=== PATIENT | male | born 1975 | race Caucasian/White ===

== ENCOUNTER 2018-04-28 11:06 | Emergency (ER) | payer BC ==
[~2018-04-28] VITALS: Ht 179.1 cm; Wt 136.1 kg
[2018-04-28 12:00] LABS: BASOPHILS # (AUTO) 0.1 (0.0-0.1); BASOPHILS % 1.2 % (0.0-1.0); EOSINOPHILS # (AUTO) 0.3 (0.0-0.4); EOSINOPHILS % 3.1 % (0.0-6.0); HEMATOCRIT 42.7 % (38.2-49.6); HEMOGLOBIN 14.8 g/dL (14.0-18.0); LYMPHOCYTES # (AUTO) 3.8 (1.0-3.2); LYMPHOCYTES % 39.1 % (18.0-39.1); MEAN CORPUSCULAR HEMOGLOBIN 30.3 pg (28-32); MEAN CORPUSCULAR HGB CONC 34.7 g/dL (31-35); MEAN CORPUSCULAR VOLUME 87.3 fL (81-99); MONOCYTES # (AUTO) 0.7 (0.2-0.8); MONOCYTES % 7.4 % (4.4-11.3); NEUTROPHILS # (AUTO) 4.8 (2.1-6.9); NEUTROPHILS % 48.9 % (38.7-80.0); PLATELET COUNT 221 x10e3/uL (140-360); RED BLOOD COUNT 4.89 x10e6/uL (4.3-5.7); RED CELL DISTRIBUTION WIDTH 12.2 % (11.7-14.4)
[2018-04-28 12:18] LABS: INR 0.92; PROTHROMBIN TIME 13.2 seconds (11.9-14.5)
[2018-04-28 12:29] LABS: ALANINE AMINOTRANSFERASE 55 IU/L (0-55); ALBUMIN 4.1 g/dL (3.5-5.0); ALBUMIN/GLOBULIN RATIO 1.2 (0.8-2.0); ALKALINE PHOSPHATASE 69 IU/L (40-150); ANION GAP 14.9 mmol/L (8-16); BLOOD UREA NITROGEN 14 mg/dL (7-26); BUN/CREATININE RATIO 13 (6-25); CALCIUM 9.6 mg/dL (8.4-10.2); CARBON DIOXIDE 22 mmol/L (22-29); CHLORIDE 108 mmol/L (98-107); CREATINE KINASE 111 IU/L (30-200); CREATININE, SERUM 1.06 mg/dL (0.72-1.25); EST GLOMERULAR FILTRATION RATE > 60 ML/MIN (60-); GLUCOSE 101 mg/dL (74-118); POTASSIUM 3.9 mmol/L (3.5-5.1); SODIUM 141 mmol/L (136-145)
--- NOTE | 2018-04-28 12:31 | Diagnostic Imaging Report ---
EXAM: XR CHEST 2 VIEWS DATE: 04/28/2018 12:06 PM INDICATION: Chest pain, shortness of breath COMPARISON: None FINDINGS: Lines and Tubes: None Heart and Mediastinum: No acute cardiomediastinal findings. Lungs and Pleura: No significant pleural effusion, pneumothorax, or focal consolidation. Bones and Soft Tissues: No acute findings. IMPRESSION: 1. No acute cardiopulmonary findings. Signed by: Dr. Mg Hernandez MD on 04/28/2018 12:28 PM
--- NOTE | 2018-04-28 12:52 | Diagnostic Imaging Report ---
ADDENDUM #1 Patient is with history of acoustic schwannoma. Please note, cannot further adequately evaluate for possible residual or recurrent schwannoma on the basis of this noncontrast head CT. Signed by: Dr. Viraj Arrieta M.D. on 04/28/2018 3:21 PM ORIGINAL REPORT Exam: Head CT without contrast History: Lightheadedness, dizziness Comparison studies: None Technique: Axial images were obtained from the skull base to the vertex. Coronal and sagittal images reconstructed from the axial data. Dose modulation, iterative reconstruction, and/or weight based adjustment of the mA/kV was utilized to reduce the radiation dose to as low as reasonably achievable. Radiation dose: Total DLP: 921 mGy*cm. Estimated effective dose: DLP x 0.015 Intravenous contrast: None Findings: Scalp and bones: A 1.5 cm metallic foreign body embedded in the posteroinferior right parietal bone penetrates both the inner and outer tables and results in artifact that somewhat limits evaluation of the adjacent brain. Surgical changes of right retrosigmoid craniotomy. The right mastoids are underpneumatized compared to the contralateral side. Brain sulci: Appropriate for age. Ventricles: Normal in size and configuration. No hydrocephalus. Extra-axial spaces: No masses, no fluid collection. Parenchyma: No abnormal densities. No masses, acute hemorrhage, acute or chronic vascular insults. Sellar/suprasellar region: No abnormalities. Craniocervical junction: Patent foramen magnum. No Chiari one malformation. Incidental findings: Atherosclerotic calcifications in the right cavernous ICA segment and left intradural vertebral artery. IMPRESSION: 1. No acute intracranial abnormalities. 2. Metallic foreign body embedded in the posterior right parietal calvarium. 3. Surgical changes of prior right retrosigmoid craniotomy. Signed by: Dr. Viraj Arrieta M.D. on 04/28/2018 12:48 PM
[2018-04-28] MEDS ORDERED: IOPAMIDOL 370 MG/ML 200 ML INFUS..BTL INJ ONE (14:07)
[2018-04-28] MEDS ORDERED: SODIUM CHLORIDE 0.9% 100 ML 100 ML ONE (14:07)
[2018-04-28 15:38] LABS: CLARITY,URINE CLEAR (CLEAR); COLOR,URINE YELLOW (YELLOW)
[2018-04-28 15:39] LABS: AMPHETAMINES SCREEN,URINE NEGATIVE (NEGATIVE); BENZODIAZEPINES SCREEN,URINE NEGATIVE (NEGATIVE); BILIRUBIN,URINE NEGATIVE (NEGATIVE); KETONES,URINE NEGATIVE (NEGATIVE); LEUKOCYTE ESTERASE ,URINE NEGATIVE (NEGATIVE); NITRITE,URINE NEGATIVE (NEGATIVE); PHENCYCLIDINE SCREEN,URINE NEGATIVE (NEGATIVE); PROTEIN,URINE DIPSTICK NEGATIVE (NEGATIVE); URINE UROBILINOGEN 0.2 mg/dL (0.2 - 1)
--- NOTE | 2018-04-28 15:42 | Diagnostic Imaging Report ---
Exam: Intracranial CTA History: Dizziness, Comparison studies:Head CT performed on the same date (. Technique: Axial images were obtained from the skull base to the vertex. Coronal and sagittal images reconstructed from the axial data. Additional 3-D volume rendered and multiplanar MIP reformatted images were obtained for review. Dose modulation, iterative reconstruction, and/or weight based adjustment of the mA/kV was utilized to reduce the radiation dose to as low as reasonably achievable. Intravenous contrast: 100 cc of Omnipaque 300. Findings: Internal carotid arteries: Patent, no abnormalities on the left. Patent on the right with mild nonstenotic calcified atherosclerosis in the distal right cavernous segment. Middle cerebral arteries: Patent, no abnormalities in the M1 and proximal M2 segments. Anterior cerebral arteries: Patent, no abnormalities in the A1 and A2 segments. Vertebral arteries: Patent, no abnormalities on the right. Patent on the left with mild stenosis due to hard and soft plaque in the proximal intradural V4 segment (proximal to the PICA origin). Basilar artery: Patent, no abnormalities. Posterior cerebral arteries: Patent, no abnormalities. The left P1 segment is hypoplastic and the dominant supply to the left [employer] is a prominent posterior left communicating artery (persistent left [employer]GEM[employer] HELPER origin). No areas of or arterial vascular malformation identified. Anatomical variants: Anterior communicating artery :Present Posterior communicating arteries: Patent on the right. Persistent left [employer]EM[employer] HELPER origin. Vertebral arteries: Codominant. Incidental findings: Metallic 1.5 cm foreign body embedded in the posterior-inferior right parietal calvarium Changes of right retrosigmoid craniectomy present for previous acoustic schwannoma resection. There is chronic remodeling of the right internal auditory canal. Please note, cannot adequately further evaluate for potential residual recurrent schwannoma on the basis of this exam. IMPRESSION: 1. Mild stenosis due to atherosclerosis in the proximal intradural left vertebral artery. 2. Minimal nonstenotic atherosclerosis in the right carotid siphon. 3. No other intracranial arterial abnormalities. 4. Incidental findings as described. Signed by: Dr. Viraj Arrieta M.D. on 04/28/2018 3:38 PM
--- OUTSIDE RECORDS SUMMARY | 2018-05-09 11:08 | XMS REPORT | Summary of Care ---
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 Cerebral edema (Final) - Hypocalcemia (Final) - Coma scale, best motor response, obeys commands, at hospital admission (Final) - Coma scale, eyes open, spontaneous, at hospital admission (Final) - Coma scale, best verbal response, oriented, at hospital admission (Final) - Discharge Disposition: Home or Self Care Attending Physician: Dre Quintanilla MD Admitting Physician: Dre Quintanilla MD Referring Physician: Dre Quintanilla MD Vital Signs 1 2 3 Most recent to oldest [Reference Range]: 177.8 cm (09/05/17 6:31 PM) 177.8 cm (09/02/17 1:39 PM) 177.8 cm (09/02/17 12:07 PM) Height 98.5 DegF (09/08/17 7:38 AM) 98.2 DegF (09/08/17 4:12 AM) 98 DegF (09/07/17 10:00 PM) Temperature Oral [96.4-99.1 DegF] 162/95 mmHg *HI* (09/08/17 7:38 AM) 156/99 mmHg *HI* (09/08/17 4:12 AM) 126/70 mmHg (09/07/17 10:00 PM) Blood Pressure [90-140/60-90 mmHg] 16 BRMIN (09/08/17 7:38 AM) 16 BRMIN (09/08/17 4:12 AM) 14 BRMIN (09/07/17 10:00 PM) Respiratory Rate [14-20 BRMIN] 59 bpm *LOW* (09/08/17 7:38 AM) 66 bpm (09/08/17 4:12 AM) 86 bpm (09/07/17 10:00 PM) Peripheral Pulse Rate [60-100 bpm] 137.818 kg (09/06/17 5:30 AM) 136.052 kg (09/05/17 6:31 PM) 136.364 kg (09/02/17 1:39 PM) Weight 43.04 m2 (09/05/17 6:31 PM) 43.14 m2 (09/02/17 1:39 PM) 43.14 m2 (09/02/17 12:07 PM) Body Mass Index Problem List Condition Effective Dates Status Health Status Informant Vestibular Active schwannoma(Confirmed ) Dizziness(Confirmed) Active Hearing Active loss(Confirmed) Hyperthyroidism(Conf Active irmed) Morbid Resolved obesity(Confirmed) Extreme Resolved obesity(Confirmed) Tinnitus(Confirmed) Active Allergies, Adverse Reactions, Alerts Substance Reaction Severity Status Vicodin Nausea and vomiting Active Medications acetaminophen (ANES) 10 mg Route: IV, Drug form: INJ, Start date: 09/05/17 9:30:00 ACTIVATED SLUDGE OPERATOR, Stop date: 09/05/17 10:30:00 ACTIVATED SLUDGE OPERATOR Start Date: 09/05/17 Stop Date: 09/05/17 Status: Completed acetaminophen-hydrocodone 325 mg-10 mg oral tablet 1 tab, Route: PO, Drug Form: TAB, Dosing Weight 136.364, kg, Q4H, PRN Pain Score 4-6, Start date: 09/05/17 6:30:00 ACTIVATED SLUDGE OPERATOR, Duration: 30 day, Stop date: 10/05/17 6: 29:00 CDT Notes: Do not exceed 4gm/day of acetaminophen. (Same as: [place] 325/10) Start Date: 09/05/17 Stop Date: 09/08/17 Status: Discontinued acetaminophen-hydrocodone 325 mg-5 mg oral tablet 1 tab, Route: PO, Drug Form: TAB, Dosing Weight 136.364, kg, Q4H, PRN Pain Score 1-3, Start date: 09/05/17 6:30:00 ACTIVATED SLUDGE OPERATOR, Duration: 30 day, Stop date: 10/05/17 6: 29:00 CDT Notes: (Same as: [place] 325/5) Do not exceed 4gm/day of acetaminophen. Start Date: 09/05/17 Stop Date: 09/08/17 Status: Discontinued ANES fentaNYL 25 microgram, Route: IVP, Q5Min, Dosing Weight 136.364, kg, PRN Pain Score 4-6, Priority: Routine, Start date: 09/05/17 11:22:00 ACTIVATED SLUDGE OPERATOR, Duration: 4 doses or times , Stop date: Limited # of times Start Date: 09/05/17 Stop Date: 09/05/17 Status: Discontinued ANES flumazenil 0.2 mg, Route: IVP, PRN, Dosing Weight 136.364, kg, PRN Benzodiazepine Reversal, Initial dose, Start date: 09/05/17 11:22:00 ACTIVATED SLUDGE OPERATOR, Duration: 30 day, Stop date: 0 10/05/17 12:21:00 CDT Start Date: 09/05/17 Stop Date: 09/05/17 Status: Discontinued ANES hydrALAZINE 10 mg, Route: IVP, Q20Min, Dosing Weight 136.364, kg, PRN Elevated BP, Start jessica e: 09/05/17 11:22:00 ACTIVATED SLUDGE OPERATOR, Duration: 2 doses or times, Stop date: Limited # of ti mes Start Date: 09/05/17 Stop Date: 09/05/17 Status: Discontinued ANES HYDROmorphone 0.5 mg, Route: IVP, Q5Min, Dosing Weight 136.364, kg, PRN Pain Score 7-10, Start date: 09/05/17 11:22:00 ACTIVATED SLUDGE OPERATOR, Duration: 4 doses or times, Stop date: Limited # of times Start Date: 09/05/17 Stop Date: 09/05/17 Status: Discontinued ANES labetalol 10 mg, Route: IVP, Q5Min, Dosing Weight 136.364, kg, PRN Elevated BP, Start date : 09/05/17 11:22:00 ACTIVATED SLUDGE OPERATOR, Duration: 5 doses or times, Stop date: Limited # of keturah es Start Date: 09/05/17 Stop Date: 09/05/17 Status: Discontinued ANES naloxone 0.4 mg, Route: IVP, Q2MIN, Dosing Weight 136.364, kg, PRN Narcotic Reversal, Sta rt date: 09/05/17 11:22:00 ACTIVATED SLUDGE OPERATOR, Duration: 8 doses or times, Stop date: Limited # of times Start Date: 09/05/17 Stop Date: 09/05/17 Status: Discontinued ANES ondansetron 4 mg, Route: IVP, ONCE, Dosing Weight 136.364, kg, PRN Nausea & Vomiting, Start date: 09/05/17 11:22:00 ACTIVATED SLUDGE OPERATOR Start Date: 09/05/17 Stop Date: 09/05/17 Status: Discontinued ANES oxyCODONE 10 mg, Route: PO, Drug form: TAB, Q4H, Dosing Weight 136.364, kg, PRN Pain Score 7-10, Start date: 09/05/17 11:22:00 ACTIVATED SLUDGE OPERATOR, Duration: 30 day, Stop date: 10/05/17 11:21:00 CDT Start Date: 09/05/17 Stop Date: 09/05/17 Status: Discontinued ANES oxyCODONE 5 mg, Route: PO, Drug form: TAB, Q4H, Dosing Weight 136.364, kg, PRN Pain Score 4-6, Start date: 09/05/17 11:22:00 ACTIVATED SLUDGE OPERATOR, Duration: 30 day, Stop date: 10/05/17 11 :21:00 CDT Start Date: 09/05/17 Stop Date: 09/05/17 Status: Discontinued bisacodyl 10 mg, 1 supp, Route: UT, Drug form: SUPP, Daily, Dosing Weight 136.364, kg, PRN Constipation, Start date: 09/05/17 6:30:00 ACTIVATED SLUDGE OPERATOR, Duration: 30 day, Stop date: 6:29:00 CDT Notes: (Same As: Dulcolax, Bisco-Lax) Start Date: 09/05/17 Stop Date: 09/08/17 Status: Discontinued calcium carbonate 500 mg (200 mg elemental calcium) oral tablet 500 mg, 1 tab, Route: PO, Drug form: [place], PRN, Dosing Weight 136.052, kg, UT N Abnormal Lab Result, FOR ICU USE ONLY, Start date: 09/06/17 2:42:00 ACTIVATED SLUDGE OPERATOR, Durat ion: 30 day, Stop date: 10/06/17 3:41:00 CDT Notes: (Same As: Tums)Calcium Carbonate 500 fb=400 mg elemental calcium Dose=_ mg calcium carbonate ( mg elemental calcium) Start Date: 09/06/17 Stop Date: 09/08/17 Status: Discontinued calcium carbonate 500 mg (200 mg elemental calcium) oral tablet 1,000 mg, 2 tab, Route: PO, Drug form: [place], PRN, Dosing Weight 136.052, kg, PRN Abnormal Lab Result, FOR ICU USE ONLY, Start date: 09/06/17 2:42:00 ACTIVATED SLUDGE OPERATOR, Dur ation: 30 day, Stop date: 10/06/17 3:41:00 CDT Notes: (Same As: Tums)Calcium Carbonate 500 in=157 mg elemental calcium Dose=_ mg calcium carbonate ( mg elemental calcium) Start Date: 09/06/17 Stop Date: 09/08/17 Status: Discontinued calcium gluconate + Sodium Chloride 0.9% IV 50 mL 1 gm, 10 mL, Route: IVPB, PRN, Dosing Weight 136.052, kg, PRN Abnormal Lab Resul t, Start date: 09/06/17 2:42:00 ACTIVATED SLUDGE OPERATOR, Duration: 30 day, Stop date: 10/06/17 3:41: 00 CDT, FOR ICU USE ONLY Notes: WASTE: F/P - Sink; E - Municipal Trash Bin Start Date: 09/06/17 Stop Date: 09/08/17 Status: Discontinued ceFAZolin (ANES) Route: IV, Drug form: INJ, ONCE, Stop date: 09/05/17 9:08:00 ACTIVATED SLUDGE OPERATOR Start Date: 09/05/17 Stop Date: 09/05/17 Status: Completed ceFAZolin (SCIP) + sterile water 20 mL 2 gm, Route: IVPB, Q8H, Dosing Weight 136.364, kg, Start date: 09/05/17 8:00:00 ACTIVATED SLUDGE OPERATOR, Duration: 3 doses or times, Stop date: 09/06/17 0:00:00 ACTIVATED SLUDGE OPERATOR, ABX Indication : Surgical Prophylaxis Notes: (Same As: Tiffani Chen) MEDICATION WASTE Product Size: 1000 mgP roduct Wasted: ___ mg Start Date: 09/05/17 Stop Date: 09/05/17 Status: Deleted ceFAZolin (SCIP) + sterile water 20 mL 2 gm, Route: IVPB, ABXQ8H, Dosing Weight 136.364, kg, Start date: 09/05/17 19:30 :00 ACTIVATED SLUDGE OPERATOR, Duration: 3 doses or times, Stop date: 09/06/17 11:30:00 ACTIVATED SLUDGE OPERATOR, ABX Indic ation: Surgical Prophylaxis Notes: (Same As: Tiffani Chen) MEDICATION WASTE Product Size: 1000 mgP roduct Wasted: ___ mg Start Date: 09/05/17 Stop Date: 09/06/17 Status: Completed Colace 100 mg oral capsule 100 mg=1 cap, PO, BID, # 28 cap, 0 Refill(s), Pharmacy: [facility]/pharmacy #[id number] Start Date: 09/06/17 Stop Date: 09/20/17 Status: Ordered dexamethasone 4 mg, 1 tab, Route: PO, Drug form: TAB, Q6H, Dosing Weight 136.364, kg, Start da te: 09/05/17 12:00:00 ACTIVATED SLUDGE OPERATOR, Duration: 30 day, Stop date: 10/05/17 6:00:00 CDT Notes: Give with food.(Same As: Decadron) Start Date: 09/05/17 Stop Date: 09/06/17 Status: Discontinued dexamethasone (ANES) Route: IV, Drug form: INJ, ONCE, Stop date: 09/05/17 9:37:00 ACTIVATED SLUDGE OPERATOR Start Date: 09/05/17 Stop Date: 09/05/17 Status: Completed dexmedetomidine (ANES) 200 microgram Route: IV, Drug form: INJ, Start date: 09/05/17 8:20:00 ACTIVATED SLUDGE OPERATOR, Stop date: 09/05/17 9:20:00 ACTIVATED SLUDGE OPERATOR Start Date: 09/05/17 Stop Date: 09/05/17 Status: Completed Dextrose 50% Syringe 25 gm, 50 mL, Route: IVP, Drug Form: INJ, Dosing Weight 136.052, kg, PRN, PRN Bl ood Glucose Results, Start date: 09/06/17 4:19:00 ACTIVATED SLUDGE OPERATOR, Duration: 30 day, Stop da te: 10/06/17 5:18:00 CDT Start Date: 09/06/17 Stop Date: 09/06/17 Status: Discontinued Dextrose 50% Syringe 12.5 gm, 25 mL, Route: IVP, Drug Form: INJ, Dosing Weight 136.052, kg, PRN, PRN Blood Glucose Results, Start date: 09/06/17 4:19:00 ACTIVATED SLUDGE OPERATOR, Duration: 30 day, Stop date: 10/06/17 5:18:00 CDT Start Date: 09/06/17 Stop Date: 09/06/17 Status: Discontinued Dilaudid 0.5 mg, 0.25 mL, Route: IVP, Drug form: INJ, Q4H, Dosing Weight 136.364, kg, PRN Pain Score 7-10, Start date: 09/05/17 6:29:00 ACTIVATED SLUDGE OPERATOR, Duration: 30 day, Stop date: 10/05/17 6:28:00 CDT Notes: Same as Dilaudid Start Date: 09/05/17 Stop Date: 09/08/17 Status: Discontinued docusate 100 mg, 1 cap, Route: PO, Drug form: CAP, Q12H, Dosing Weight 136.364, kg, Start date: 09/05/17 9:00:00 ACTIVATED SLUDGE OPERATOR, Duration: 30 day, Stop date: 10/04/17 21:00:00 CDT Notes: (Same as: Colace) (Do Not Crush) Start Date: 09/05/17 Stop Date: 09/08/17 Status: Discontinued Excedrin 2 tab, PO, PRN Start Date: 09/02/17 Stop Date: 09/06/17 Status: Discontinued famotidine 20 mg, 2 mL, Route: IVP, Drug form: INJ, Q12H, Dosing Weight 136.364, kg, Start date: 09/05/17 9:00:00 ACTIVATED SLUDGE OPERATOR, Duration: 30 day, Stop date: 10/04/17 21:00:00 CDT Notes: (Same as: Pepcid) Start Date: 09/05/17 Stop Date: 09/06/17 Status: Discontinued fentaNYL (ANES) Route: IV, Drug form: INJ, ONCE, Stop date: 09/05/17 9:08:00 ACTIVATED SLUDGE OPERATOR Start Date: 09/05/17 Stop Date: 09/05/17 Status: Completed glucagon 1 mg, Route: IM, Drug form: PDR/INJ, PRN, Dosing Weight 136.052, kg, PRN Blood G lucose Results, Start date: 09/06/17 4:19:00 ACTIVATED SLUDGE OPERATOR, Duration: 30 day, Stop date: 0 10/06/17 5:18:00 CDT Start Date: 09/06/17 Stop Date: 09/06/17 Status: Discontinued glycopyrrolate (ANES) Route: IV, Drug form: INJ, ONCE, Stop date: 09/05/17 9:08:00 ACTIVATED SLUDGE OPERATOR Start Date: 09/05/17 Stop Date: 09/05/17 Status: Completed heparin 5000 units/mL injectable solution 5,000 unit, 1 mL, Route: SUB-Q, Drug form: INJ, Q8H, Dosing Weight 137.818, kg, Start date: 09/06/17 16:00:00 ACTIVATED SLUDGE OPERATOR, Duration: 30 day, Stop date: 10/06/17 8:00:00 CDT Notes: porcine heparin Start Date: 09/06/17 Stop Date: 09/08/17 Status: Discontinued hydrALAZINE 10 mg, 0.5 mL, Route: IVP, Drug form: INJ, Q2H, Dosing Weight 136.052, kg, PRN H ypertension, Priority: NOW, Start date: 09/05/17 20:18:00 ACTIVATED SLUDGE OPERATOR, Duration: 30 day, Stop date: 10/05/17 20:17:00 CDT Notes: (Same as: Apresoline)Push over 5 minutes Start Date: 09/05/17 Stop Date: 09/08/17 Status: Discontinued ibuprofen 400 mg, 1 tab, Route: PO, Drug form: TAB, Q4H, Dosing Weight 136.052, kg, PRN Pa in Score 1-3, Start date: 09/05/17 23:36:00 ACTIVATED SLUDGE OPERATOR, Duration: 30 day, Stop date: 23:35:00 CDT Notes: (Same as: Motrin)"Do Not Crush" Give with food. Start Date: 09/05/17 Stop Date: 09/08/17 Status: Discontinued Insulin regular 2 unit, 0.02 mL, Route: SUB-Q, Drug form: SOLN, TID-Before Meals, Dosing Weight 136.052, kg, PRN Blood Glucose Results, Start date: 09/06/17 4:19:00 ACTIVATED SLUDGE OPERATOR, Durati on: 30 day, Stop date: 10/06/17 4:18:00 CDT Notes: (Same as: Humulin R) Roll in palms of hands gently; Do not shake vigorou sly. "single patient use only"(Restricted to patients requiring a dose > 60 units)WASTE: F/P - Black; E - Municipal Trash Bin Stable for 28 days at room temperatureExpires in days from Date Start Date: 09/06/17 Stop Date: 09/06/17 Status: Discontinued Insulin regular 4 unit, 0.04 mL, Route: SUB-Q, Drug form: SOLN, TID-Before Meals, Dosing Weight 136.052, kg, PRN Blood Glucose Results, Start date: 09/06/17 4:19:00 ACTIVATED SLUDGE OPERATOR, Durati on: 30 day, Stop date: 10/06/17 4:18:00 CDT Notes: (Same as: Humulin R) Roll in palms of hands gently; Do not shake vigorou sly. "single patient use only"(Restricted to patients requiring a dose > 60 units)WASTE: F/P - Black; E - Municipal Trash Bin Stable for 28 days at room temperatureExpires in days from Date Start Date: 09/06/17 Stop Date: 09/06/17 Status: Discontinued Insulin regular 6 unit, 0.06 mL, Route: SUB-Q, Drug form: SOLN, TID-Before Meals, Dosing Weight 136.052, kg, PRN Blood Glucose Results, Start date: 09/06/17 4:19:00 ACTIVATED SLUDGE OPERATOR, Durati on: 30 day, Stop date: 10/06/17 4:18:00 CDT Notes: (Same as: Humulin R) Roll in palms of hands gently; Do not shake vigorou sly. "single patient use only"(Restricted to patients requiring a dose > 60 units)WASTE: F/P - Black; E - Municipal Trash Bin Stable for 28 days at room temperatureExpires in days from Date Start Date: 09/06/17 Stop Date: 09/06/17 Status: Discontinued Insulin regular 8 unit, 0.08 mL, Route: SUB-Q, Drug form: SOLN, TID-Before Meals, Dosing Weight 136.052, kg, PRN Blood Glucose Results, Start date: 09/06/17 4:19:00 ACTIVATED SLUDGE OPERATOR, Durati on: 30 day, Stop date: 10/06/17 4:18:00 CDT Notes: (Same as: Humulin R) Roll in palms of hands gently; Do not shake vigorou sly. "single patient use only"(Restricted to patients requiring a dose > 60 units)WASTE: F/P - Black; E - Municipal Trash Bin Stable for 28 days at room temperatureExpires in days from Date Start Date: 09/06/17 Stop Date: 09/06/17 Status: Discontinued Insulin regular 10 unit, 0.1 mL, Route: SUB-Q, Drug form: SOLN, TID-Before Meals, Dosing Weight 136.052, kg, PRN Blood Glucose Results, Start date: 09/06/17 4:19:00 ACTIVATED SLUDGE OPERATOR, Durati on: 30 day, Stop date: 10/06/17 4:18:00 CDT Notes: (Same as: Humulin R) Roll in palms of hands gently; Do not shake vigorou sly. "single patient use only"(Restricted to patients requiring a dose > 60 units)WASTE: F/P - Black; E - Municipal Trash Bin Stable for 28 days at room temperatureExpires in days from Date Start Date: 09/06/17 Stop Date: 09/06/17 Status: Discontinued Lactated Ringers Injection IV (ANES) 1000 mL Route: IV, Total Volume: 1,000, Start date: 09/05/17 7:36:00 ACTIVATED SLUDGE OPERATOR, Stop date: 07/11 8:36:00 ACTIVATED SLUDGE OPERATOR Start Date: 09/05/17 Stop Date: 09/05/17 Status: Completed lidocaine (ANES) Route: IV, Drug form: INJ, ONCE, Stop date: 09/05/17 9:08:00 ACTIVATED SLUDGE OPERATOR Start Date: 09/05/17 Stop Date: 09/05/17 Status: Completed magnesium citrate 1.745 g/30 mL oral liquid 150 ml, Route: PO, Drug Form: LIQ, Dosing Weight 137.818, kg, ONCE, PRN Constipa tion, Start date: 09/07/17 12:00:00 ACTIVATED SLUDGE OPERATOR Notes: (Same as: Citrate of Magnesia)Concentration: 1.745 gm / 30 mL Start Date: 09/07/17 Stop Date: 09/07/17 Status: Completed magnesium citrate 1.745 g/30 mL oral liquid 8.725 wt=374 ml, PO, ONCE, if no bowel movement in couple days, # 300 ml, 0 Refi ll(s), Pharmacy: [facility]/pharmacy #[id number] Start Date: 09/06/17 Status: Ordered magnesium oxide 800 mg, 2 tab, Route: PO, Drug form: TAB, PRN, Dosing Weight 136.052, kg, PRN Ab normal Lab Result, FOR ICU USE ONLY, Start date: 09/06/17 2:42:00 ACTIVATED SLUDGE OPERATOR, Duration: 30 day, Stop date: 10/06/17 3:41:00 CDT Notes: (Same as: Mag-Ox 400)Magnesium oxide [id number] elemental magnesiumDose= ____mg magnesium oxide (___mg elemental magnesium) Start Date: 09/06/17 Stop Date: 09/08/17 Status: Discontinued magnesium sulfate 2 gm, 50 mL, Route: IVPB, Drug form: INJ, PRN, Dosing Weight 136.052, kg, PRN Ab normal Lab Result, Start date: 09/06/17 2:42:00 ACTIVATED SLUDGE OPERATOR, Duration: 30 day, Stop date : 10/06/17 3:41:00 CDT, FOR ICU USE ONLY Notes: WASTE: F/P - Sink; E - Municipal Trash Bin Start Date: 09/06/17 Stop Date: 09/08/17 Status: Discontinued methimazole 5 mg, 1 tab, Route: PO, Drug form: TAB, Q8H, Dosing Weight 137.818, kg, Start da te: 09/06/17 16:00:00 ACTIVATED SLUDGE OPERATOR, Duration: 30 day, Stop date: 10/06/17 8:00:00 CDT Start Date: 09/06/17 Stop Date: 09/08/17 Status: Discontinued midazolam (ANES) Route: IV, Drug form: SOLN, ONCE, Stop date: 09/05/17 9:08:00 ACTIVATED SLUDGE OPERATOR Start Date: 09/05/17 Stop Date: 09/05/17 Status: Completed [place] 10/325 oral tablet 2 tab, Route: PO, Drug Form: TAB, Dosing Weight 137.818, kg, Q6H, PRN Pain Score 7-10, Start date: 09/06/17 12:18:00 ACTIVATED SLUDGE OPERATOR, Duration: 30 day, Stop date: 10/06/17 12:17:00 CDT Notes: Do not exceed 4gm/day of acetaminophen. (Same as: [place] 325/10) Start Date: 09/06/17 Stop Date: 09/08/17 Status: Discontinued norepinephrine (ANES) Route: IV, Drug form: INJ, ONCE, Stop date: 09/05/17 10:06:00 ACTIVATED SLUDGE OPERATOR Start Date: 09/05/17 Stop Date: 09/05/17 Status: Completed ondansetron 4 mg, 2 mL, Route: IVP, Drug form: INJ, Q8H, Dosing Weight 136.364, kg, PRN Naus ea & Vomiting, Start date: 09/05/17 6:30:00 ACTIVATED SLUDGE OPERATOR, Duration: 30 day, Stop date: 10/05/17 6:29:00 CDT Notes: (Same as: Tim) MEDICATION WASTE Product Size: 4 mgProduct Was alannah: ___ mg Start Date: 09/05/17 Stop Date: 09/08/17 Status: Discontinued ondansetron (ANES) Route: IV, Drug form: INJ, ONCE, Stop date: 09/05/17 13:46:00 ACTIVATED SLUDGE OPERATOR Start Date: 09/05/17 Stop Date: 09/05/17 Status: Completed potassium chloride 20 mEq, 15 mL, Route: NJ, Drug form: LIQ, PRN, Dosing Weight 136.052, kg, PRN Ab normal Lab Result, Start date: 09/06/17 2:42:00 ACTIVATED SLUDGE OPERATOR, Duration: 30 day, Stop date : 10/06/17 3:41:00 CDT, FOR ICU USE ONLY Notes: (Same as: Potassium Chloride) Start Date: 09/06/17 Stop Date: 09/08/17 Status: Discontinued potassium chloride 20 mEq, 100 mL, Route: IVPB, Drug form: INJ, PRN, Dosing Weight 136.052, kg, PRN Abnormal Lab Result, Via central line, Start date: 09/06/17 2:42:00 ACTIVATED SLUDGE OPERATOR, Durati on: 30 day, Stop date: 10/06/17 3:41:00 CDT, FOR ICU USE ONLY Notes: (Same as: KCL) Infuse no faster than 10 mEq/hr if given peripherally. Start Date: 09/06/17 Stop Date: 09/08/17 Status: Discontinued potassium chloride 10 mEq, 50 mL, Route: IVPB, Drug form: INJ, PRN, Dosing Weight 136.052, kg, PRN Abnormal Lab Result, Via peripheral line, Start date: 09/06/17 2:42:00 ACTIVATED SLUDGE OPERATOR, Dura tion: 30 day, Stop date: 10/06/17 3:41:00 CDT, FOR ICU USE ONLY Notes: (Same as: KCL) Infuse no faster than 10mEq/hr if given peripherally Start Date: 09/06/17 Stop Date: 09/08/17 Status: Discontinued potassium chloride 20 mEq, 1 tab, Route: PO, Drug form: ERTAB, PRN, Dosing Weight 136.052, kg, PRN Abnormal Lab Result, Start date: 09/06/17 2:42:00 ACTIVATED SLUDGE OPERATOR, Duration: 30 day, Stop da te: 10/06/17 3:41:00 CDT, FOR ICU USE ONLY Notes: (Same as: K-Dur 20)"Do Not Crush" With food and full glass of water Start Date: 09/06/17 Stop Date: 09/08/17 Status: Discontinued potassium phosphate + Sodium Chloride 0.9% IV 250 mL 30 mmol, 10 mL, Route: IVPB, PRN, Dosing Weight 136.052, kg, PRN Abnormal Lab Re sult, Start date: 09/06/17 2:42:00 ACTIVATED SLUDGE OPERATOR, Duration: 30 day, Stop date: 10/06/17 3: 41:00 CDT, FOR ICU USE ONLY Notes: (Same as: K Phosphate.) 1 mMol phoshate has 1.47 mEq potassium Infuse o juvenal 4 hours Start Date: 09/06/17 Stop Date: 09/08/17 Status: Discontinued potassium phosphate + Sodium Chloride 0.9% IV 250 mL 15 mmol, 5 mL, Route: IVPB, PRN, Dosing Weight 136.052, kg, PRN Abnormal Lab Res ult, Start date: 09/06/17 2:42:00 ACTIVATED SLUDGE OPERATOR, Duration: 30 day, Stop date: 10/06/17 3:4 1:00 CDT, FOR ICU USE ONLY Notes: (Same as: K Phosphate.) 1 mMol phoshate has 1.47 mEq potassium Infuse o juvenal 4 hours Start Date: 09/06/17 Stop Date: 09/08/17 Status: Discontinued potassium phosphate + Sodium Chloride 0.9% IV 250 mL 45 mmol, 15 mL, Route: IVPB, PRN, Dosing Weight 136.052, kg, PRN Abnormal Lab Re sult, Start date: 09/06/17 2:42:00 ACTIVATED SLUDGE OPERATOR, Duration: 30 day, Stop date: 10/06/17 3: 41:00 CDT, FOR ICU USE ONLY Notes: (Same as: K Phosphate.) 1 mMol phoshate has 1.47 mEq potassium Infuse o juvenal 4 hours Start Date: 09/06/17 Stop Date: 09/08/17 Status: Discontinued potassium phosphate-sodium phosphate 250 mg-280 mg-160 mg oral powder for recons titution 2 pkt, Route: PO, Drug Form: PDR/REC, Dosing Weight 136.052, kg, PRN, PRN Abnorm al Lab Result, FOR ICU USE ONLY, Start date: 09/06/17 2:42:00 ACTIVATED SLUDGE OPERATOR, Duration: 30 day, Stop date: 10/06/17 3:41:00 CDT Notes: (Same as: Phos-NaK) Each 1.5 gm pkt has 250mg phosphorous. Mix w/2.5oz w ater and stir. Start Date: 09/06/17 Stop Date: 09/08/17 Status: Discontinued promethazine 12.5 mg, 0.5 mL, Route: IVPB, Drug form: INJ, Q6H, Dosing Weight 136.364, kg, UT N Nausea & Vomiting, Start date: 09/05/17 6:30:00 ACTIVATED SLUDGE OPERATOR, Duration: 30 day, Stop date: 10/05/17 6:29:00 CDT Notes: (Same as: Phenergan) Start Date: 09/05/17 Stop Date: 09/06/17 Status: Discontinued propofol (ANES) Route: IV, Drug form: INJ, ONCE, Stop date: 09/05/17 9:08:00 ACTIVATED SLUDGE OPERATOR Start Date: 09/05/17 Stop Date: 09/05/17 Status: Completed propofol (ANES) 10 mg Route: IV, Drug form: INJ, Start date: 09/05/17 8:22:00 ACTIVATED SLUDGE OPERATOR, Stop date: 09/05/17 9:22:00 ACTIVATED SLUDGE OPERATOR Start Date: 09/05/17 Stop Date: 09/05/17 Status: Completed propranolol 10 mg=1 tab, PO, Daily Start Date: 09/02/17 Status: Ordered propranolol 20 mg, 1 tab, Route: PO, Drug form: TAB, Daily, Dosing Weight 137.818, kg, Start date: 09/07/17 9:00:00 ACTIVATED SLUDGE OPERATOR, Duration: 30 day, Stop date: 10/06/17 9:00:00 CDT Notes: Give with food.(Same as: Inderal) Start Date: 09/07/17 Stop Date: 09/08/17 Status: Discontinued Reglan 10 mg, 2 mL, Route: IVP, Drug form: INJ, Q6H, Dosing Weight 137.818, kg, PRN [place] & Vomiting, Start date: 09/06/17 12:33:00 ACTIVATED SLUDGE OPERATOR, Duration: 30 day, Stop date: 10/06/17 12:32:00 CDT Notes: (Same as: Reglan) Start Date: 09/06/17 Stop Date: 09/08/17 Status: Discontinued Reglan 10 mg, 2 mL, Route: IVP, Drug form: INJ, ONCE, Dosing Weight 136.052, kg, Priori ty: NOW, Start date: 09/05/17 23:16:00 ACTIVATED SLUDGE OPERATOR, Stop date: 09/05/17 23:16:00 ACTIVATED SLUDGE OPERATOR Notes: (Same as: Reglan) Start Date: 09/05/17 Stop Date: 09/05/17 Status: Completed rocuronium (ANES) Route: IV, Drug form: INJ, ONCE, Stop date: 09/05/17 9:08:00 ACTIVATED SLUDGE OPERATOR Start Date: 09/05/17 Stop Date: 09/05/17 Status: Completed Saline Flush 0.9% 10 ml, Route: IVP, Drug Form: INJ, Dosing Weight 136.364, kg, PRN, PRN Line Flus h, Start date: 09/05/17 6:30:00 ACTIVATED SLUDGE OPERATOR, Duration: 30 day, Stop date: 10/05/17 7:29: 00 CDT Notes: Same as: BD Posiflush Sterile Start Date: 09/05/17 Stop Date: 09/08/17 Status: Discontinued Saline Flush 0.9% 10 ml, Route: IVP, Drug Form: INJ, Dosing Weight 136.364, kg, Q12H, Start date: 09/05/17 9:00:00 ACTIVATED SLUDGE OPERATOR, Duration: 30 day, Stop date: 10/04/17 21:00:00 CDT Notes: Same as: BD Posiflush Sterile Start Date: 09/05/17 Stop Date: 09/08/17 Status: Discontinued senna 8.6 mg, 1 tab, Route: PO, Drug Form: TAB, Dosing Weight 136.364, kg, Q12H, Start date: 09/05/17 9:00:00 ACTIVATED SLUDGE OPERATOR, Duration: 30 day, Stop date: 10/04/17 21:00:00 CDT Notes: (Same as: Senokot) Start Date: 09/05/17 Stop Date: 09/08/17 Status: Discontinued senna 8.6 mg oral tablet 17.2 mg=2 tab, PO, Bedtime, PRN Constipation, X 10 day, # 20 tab, 0 Refill(s), P harmacy: [facility]/pharmacy #[id number] Start Date: 09/06/17 Stop Date: 09/16/17 Status: Completed Sodium Chloride 0.9% IV (ANES) 500 mL Route: IV, Total Volume: 500, Start date: 09/05/17 9:30:00 ACTIVATED SLUDGE OPERATOR, Stop date: 09/05 10:30:00 ACTIVATED SLUDGE OPERATOR Start Date: 09/05/17 Stop Date: 09/05/17 Status: Completed Sodium Chloride 0.9% IV 1,000 mL 1,000 mL, Rate: 75 ml/hr, Infuse over: 13.3 hr, Route: IV, Dosing Weight 136.364 kg, Total Volume: 1,000, Start date: 09/05/17 6:30:00 ACTIVATED SLUDGE OPERATOR, Duration: 30 day, St op date: 10/05/17 6:29:00 CDT, 2.63, m2 Start Date: 09/05/17 Stop Date: 09/05/17 Status: Discontinued Sodium Chloride 0.9% IV 1,000 mL 1,000 mL, Rate: 125 ml/hr, Infuse over: 8 hr, Route: IV, Dosing Weight 136.364 k g, Total Volume: 1,000, Start date: 09/05/17 9:24:00 ACTIVATED SLUDGE OPERATOR, Duration: 30 day, Stop date: 10/05/17 9:23:00 CDT, 2.63, m2 Start Date: 09/05/17 Stop Date: 09/08/17 Status: Discontinued sodium phosphate + Sodium Chloride 0.9% IV 250 mL 15 mmol, 5 mL, Route: IVPB, PRN, Dosing Weight 136.052, kg, PRN Abnormal Lab Res ult, Start date: 09/06/17 2:42:00 ACTIVATED SLUDGE OPERATOR, Duration: 30 day, Stop date: 10/06/17 3:4 1:00 CDT, FOR ICU USE ONLY Start Date: 09/06/17 Stop Date: 09/08/17 Status: Discontinued sodium phosphate + Sodium Chloride 0.9% IV 250 mL 45 mmol, 15 mL, Route: IVPB, PRN, Dosing Weight 136.052, kg, PRN Abnormal Lab Re sult, Start date: 09/06/17 2:42:00 ACTIVATED SLUDGE OPERATOR, Duration: 30 day, Stop date: 10/06/17 3: 41:00 CDT, FOR ICU USE ONLY Start Date: 09/06/17 Stop Date: 09/08/17 Status: Discontinued sodium phosphate + Sodium Chloride 0.9% IV 250 mL 30 mmol, 10 mL, Route: IVPB, PRN, Dosing Weight 136.052, kg, PRN Abnormal Lab Re sult, Start date: 09/06/17 2:42:00 ACTIVATED SLUDGE OPERATOR, Duration: 30 day, Stop date: 10/06/17 3: 41:00 CDT, FOR ICU USE ONLY Start Date: 09/06/17 Stop Date: 09/08/17 Status: Discontinued succinylcholine (ANES) Route: IV, Drug form: INJ, ONCE, Stop date: 09/05/17 9:08:00 ACTIVATED SLUDGE OPERATOR Start Date: 09/05/17 Stop Date: 09/05/17 Status: Completed tramadol 50 mg oral tablet 50 mg=1 tab, PO, Q4H, PRN Pain, not to exceed 400 mg/day may alternate with Tyl enol # 3, X 10 day, # 60 tab, 0 Refill(s) Start Date: 09/06/17 Stop Date: 09/16/17 Status: Completed Tylenol PO, 0 Refill(s) Start Date: 09/05/17 Stop Date: 09/06/17 Status: Discontinued Tylenol with Codeine #3 oral tablet 1 tab, PO, Q6H, PRN Pain, not to exceed 4000 mg acetaminophen per day, X 15 day, # 60 tab, 0 Refill(s) Start Date: 09/06/17 Stop Date: 09/21/17 Status: Completed Zofran 4 mg oral tablet 4 mg=1 tab, PO, Q8H, PRN Nausea/vomiting, # 30 tab, 0 Refill(s), [facility]acy: [id number] Start Date: 09/06/17 Stop Date: 09/16/17 Status: Ordered Results BLOOD BANK RESULTS 1 2 3 Most recent to oldest [Reference Range]: A POS *Unknown* (09/05/17 6:09 AM) ABO/Rh Negative (09/05/17 6:09 AM) Antibody Scrn ELECTROLYTES 1 2 3 Most recent to oldest [Reference Range]: 140 mEq/L (09/07/17 12:18 AM) 142 mEq/L (09/06/17 6:58 AM) 140 mEq/L (09/06/17 12:20 AM) Sodium Lvl [135-145 mEq/L] 4.6 mEq/L (09/07/17 12:18 AM) 3.7 mEq/L (09/06/17 12:20 AM) 4.2 mEq/L (09/05/17 2:03 PM) Potassium Lvl [3.5-5.1 mEq/L] 108 mEq/L (09/07/17 12:18 AM) 106 mEq/L (09/06/17 12:20 AM) 105 mEq/L (09/05/17 2:03 PM) Chloride Lvl [95-109 mEq/L] 25 mEq/L (09/07/17 12:18 AM) 24 mEq/L (09/06/17 12:20 AM) 24 mEq/L (09/05/17 2:03 PM) CO2 [24-32 mEq/L] 11.6 mEq/L (09/07/17 12:18 AM) 13.7 mEq/L (09/06/17 12:20 AM) 13.2 mEq/L (09/05/17 2:03 PM) AGAP [10.0-20.0 mEq/L] CHEM PANEL 1 2 3 Most recent to oldest [Reference Range]: 0.98 mg/dL (09/07/17 12:18 AM) 0.88 mg/dL (09/06/17 12:20 AM) 1.12 mg/dL (09/05/17 2:03 PM) Creatinine Lvl [0.50-1.40 mg/dL] 96 mL/min/1.73m2 1 *NA* (09/07/17 12:18 AM) 108 mL/min/1.73m2 2 *NA* (09/06/17 12:20 AM) 82 mL/min/1.73m2 3 *NA* (09/05/17 2:03 PM) eGFR 14 mg/dL (09/07/17:18 AM) 10 mg/dL (09/06/17 12:20 AM) 13 mg/dL (09/05/17 2:03 PM) BUN [7-22 mg/dL] 16 (09/02/17 2:40 PM) B/C Ratio [6-25] 135 mg/dL *HI* (09/07/17 12:18 AM) 157 mg/dL *HI* (09/06/17 12:20 AM) 153 mg/dL *HI* (09/05/17 2:03 PM) Glucose Lvl [70-99 mg/dL] 7.7 g/dL (09/02/17 2:40 PM) Total Protein [6.4-8.4 g/dL] 4.2 g/dL (09/02/17 2:40 PM) Albumin Lvl [3.5-5.0 g/dL] 3.5 g/dL (09/02/17 2:40 PM) Globulin [2.7-4.2 g/dL] 1.2 (09/02/17 2:40 PM) A/G Ratio [0.7-1.6] 8.4 mg/dL *LOW* (09/07/17 12:18 AM) 8.0 mg/dL *LOW* (09/06/17 12:20 AM) 8.4 mg/dL *LOW* (09/05/17 2:03 PM) Calcium Lvl [8.5-10.5 mg/dL] 2.3 mg/dL *LOW* (09/07/17 12:18 AM) 2.6 mg/dL (09/06/17 12:20 AM) Phosphorus [2.5-4.5 mg/dL] 2.3 mg/dL (09/07/17 12:18 AM) 1.9 mg/dL (09/06/17 12:20 AM) Magnesium Lvl [1.8-2.4 mg/dL] 83 unit/L *HI* (09/02/17 2:40 PM) ALT [0-65 unit/L] 40 unit/L *HI* (09/02/17 2:40 PM) AST [0-37 unit/L] 78 unit/L (09/02/17 2:40 PM) Alk Phos [39-136 unit/L] 0.5 mg/dL (09/02/17 2:40 PM) Bili Total [0.2-1.3 mg/dL] 296 mOsm/kg (09/06/17 6:58 AM) Osmolality [280-300 mOsm/kg] 1Result Comment: The eGFR is calculated using the CKD-EPI formula. In most young, healthy individuals the eGFR will be >90 mL/min/1.73m2. The eGFR declines with age. An eGFR of 60-89 may be normal in some populations, particularly the elderly, for whom the CKD-EPI formula has not been extensively validated. Use of the eGFR is not recommended in the following populations: Individuals with unstable creatinine concentrations, including patients and those with serious co-morbid conditions. Patients with extremes in muscle mass or diet. The data above are obtained from the National Kid[employer] Disease Education Program ( [employer]) which additionally recommends that when the eGFR is used in patients with extremes of body mass index for purposes of drug dosing, the eGFR should be mul tiplied by the estimated BMI. 2Result Comment: The eGFR is calculated using the CKD-EPI formula. In most young, healthy individuals the eGFR will be >90 mL/min/1.73m2. The eGFR declines with age. An eGFR of 60-89 may be normal in some populations, particularly the elderly, for whom the CKD-EPI formula has not been extensively validated. Use of the eGFR is not recommended in the following populations: Individuals with unstable creatinine concentrations, including patients and those with serious co-morbid conditions. Patients with extremes in muscle mass or diet. The data above are obtained from the National Kid[employer] Disease Education Program ( [employer]) which additionally recommends that when the eGFR is used in patients with extremes of body mass index for purposes of drug dosing, the eGFR should be mul tiplied by the estimated BMI. 3Result Comment: The eGFR is calculated using the CKD-EPI formula. In most young, healthy individuals the eGFR will be >90 mL/min/1.73m2. The eGFR declines with age. An eGFR of 60-89 may be normal in some populations, particularly the elderly, for whom the CKD-EPI formula has not been extensively validated. Use of the eGFR is not recommended in the following populations: Individuals with unstable creatinine concentrations, including patients and those with serious co-morbid conditions. Patients with extremes in muscle mass or diet. The data above are obtained from the National Kid[employer] Disease Education Program ( [employer]) which additionally recommends that when the eGFR is used in patients with extremes of body mass index for purposes of drug dosing, the eGFR should be mul tiplied by the estimated BMI. PARATHYROID PROFILE 1 2 3 Most recent to oldest [Reference Range]: 1.07 mMol/L (09/07/17 12:18 AM) 1.08 mMol/L (09/06/17 12:20 AM) Ca Ion WB [1.05-1.25 mMol/L] 1.06 mMol/L (09/07/17 12:18 AM) 1.07 mMol/L (09/06/17 12:20 AM) Ca Norm WB [1.05-1.25 mMol/L] URINE CHEM 1 2 3 Most recent to oldest [Reference Range]: 60 mEq/L *NA* (09/06/17 6:58 AM) U Sodium 273 mOsm/kg *LOW* (09/06/17 6:58 AM) U Osmolality [300-800 mOsm/kg] HEMATOLOGY 1 2 3 Most recent to oldest [Reference Range]: 16.7 K/CMM *HI* (09/07/17 12:18 AM) 15.5 K/CMM *HI* (09/06/17 12:20 AM) 10.1 K/CMM (09/05/17 2:03 PM) WBC [3.7-10.4 K/CMM] 4.51 M/CMM *LOW* (09/07/17:18 AM) 4.69 M/CMM *LOW* (09/06/17 12:20 AM) 4.64 M/CMM *LOW* (09/05/17 2:03 PM) RBC [4.70-6.10 M/CMM] 13.6 g/dL *LOW* (09/07/17:18 AM) 13.9 g/dL *LOW* (09/06/17 12:20 AM) 13.8 g/dL *LOW* (09/05/17 2:03 PM) Hgb [14.0-18.0 g/dL] 39.9 % *LOW* (09/07/17:18 AM) 40.5 % *LOW* (09/06/17 12:20 AM) 40.7 % *LOW* (09/05/17 2:03 PM) Hct [42.0-54.0 %] 88.5 fL (09/07/17:18 AM) 86.4 fL (09/06/17 12:20 AM) 87.7 fL (09/05/17 2:03 PM) MCV [80.0-94.0 fL] 30.1 pg (09/07/17:18 AM) 29.8 pg (09/06/17 12:20 AM) 29.7 pg (09/05/17 2:03 PM) MCH [27.0-31.0 pg] 34.0 g/dL (09/07/17:18 AM) 34.4 g/dL (09/06/17 12:20 AM) 33.8 g/dL (09/05/17 2:03 PM) MCHC [32.0-36.0 g/dL] 12.8 % (09/07/17:18 AM) 12.7 % (09/06/17 12:20 AM) 12.5 % (09/05/17 2:03 PM) RDW [11.5-14.5 %] 10.9 fL *HI* (09/07/17:18 AM) 11.1 fL *HI* (09/06/17 12:20 AM) 10.7 fL *HI* (09/05/17 2:03 PM) MPV [7.4-10.4 fL] 209 K/CMM (09/07/17 12:18 AM) 210 K/CMM (09/06/17 12:20 AM) 216 K/CMM (09/05/17 2:03 PM) Platelet [133-450 K/CMM] 82.6 % *HI* (09/07/17:18 AM) 87.9 % *HI* (09/06/17 12:20 AM) 82.1 % *HI* (09/05/17 2:03 PM) Segs [45.0-75.0 %] 11.8 % *LOW* (09/07/17:18 AM) 9.1 % *LOW* (09/06/17 12:20 AM) 16.3 % *LOW* (09/05/17 2:03 PM) Lymphocytes [20.0-40.0 %] 5.2 % (09/07/17 12:18 AM) 2.9 % (09/06/17 12:20 AM) 1.1 % *LOW* (09/05/17 2:03 PM) Monocytes [2.0-12.0 %] 0.2 % (09/05/17 2:03 PM) 2.5 % (09/02/17 2:40 PM) Eosinophils [0.0-4.0 %] 0.4 % (09/07/17:18 AM) 0.1 % (09/06/17 12:20 AM) 0.3 % (09/05/17 2:03 PM) Basophils [0.0-1.0 %] 13.8 K/CMM *HI* (09/07/17 12:18 AM) 13.6 K/CMM *HI* (09/06/17 12:20 AM) 8.3 K/CMM *HI* (09/05/17 2:03 PM) Segs-Bands # [1.5-8.1 K/CMM] 2.0 K/CMM (09/07/17 12:18 AM) 1.4 K/CMM (09/06/17 12:20 AM) 1.6 K/CMM (09/05/17 2:03 PM) Lymphocytes # [1.0-5.5 K/CMM] 0.9 K/CMM *HI* (09/07/17 12:18 AM) 0.5 K/CMM (09/06/17 12:20 AM) 0.1 K/CMM (09/05/17 2:03 PM) Monocytes # [0.0-0.8 K/CMM] 0.2 K/CMM (09/02/17 2:40 PM) Eosinophils # [0.0-0.5 K/CMM] 0.1 K/CMM (09/07/17 12:18 AM) 0.1 K/CMM (09/02/17 2:40 PM) Basophils # [0.0-0.2 K/CMM] 13.5 seconds (09/02/17 2:40 PM) PT [12.0-14.7 seconds] 1.03 (09/02/17 2:40 PM) INR [0.85-1.17] 31.9 seconds (09/02/17 2:40 PM) PTT [22.9-35.8 seconds] 6.2 minutes (09/02/17 2:40 PM) R-time [5.0-10.0 minutes] 1.7 minutes (09/02/17 2:40 PM) K-time [1.0-3.0 minutes] 66.5 degrees (09/02/17 2:40 PM) Angle [53.0-72.0 degrees] 68.3 mm (09/02/17 2:40 PM) Max Amp [50.0-70.0 mm] 10.8 K d/sc (09/02/17 2:40 PM) G-value [4.5-11.0 K d/sc] 0.0 % (09/02/17 2:40 PM) Ly30 [0.0-7.5 %] 1.0 (09/02/17 2:40 PM) Coag Index [-3.0-3.0] Thrombelastograph results are within reference ranges. These indicate adequate hemostasis. Note that TEG does not show effect of NSAIDs or P2Y12 inhibitors. CPT:88385 *NA* (09/02/17 2:40 PM) TEG Interp See Note (09/02/17 2:40 PM) TEG Data BACTERIAL - SEROLOGY 1 2 3 Most recent to oldest [Reference Range]: Negative (09/05/17 6:21 PM) MRSA by PCR Immunizations No data available for this section Procedures Procedure Date Related Diagnosis Body Site Status Appendectomy Completed Social History Social History Type Response Alcohol Current, Frequency: 1-2 times per month. Smoking Status Former smoker; Exposure to Tobacco Smoke None; Cigarette Smoking Last 365 Days No; Reg Smoking Cessation Counseling No1 entered on: 10/14/17 1Quit smoking 10 years ago Assessment and Plan Extracted from: Title: ENT Author: Bouchra Novak MD Date: 09/06/17 ENT Progress Note S: ISELA overnight, patient states he has mild intermittent dizziness and some minimal pain with eye movements, otherwise doing well O: VitalsTmp(F)Tmp(C)[id number] 09/06 06:00 117/388412--31 2.0L/m--- 09/06 05:00 123/487427--23 2.0L/m--- 09/06 04:00 127/833629--55 2.0L/m--- 09/06 03:[id number] 2.0L/m--- 09/06 02:00 112/201306--98 2.0L/m--- 24 Hr Tmax: 98.1F (36.72c) at 09/06 03:0024 Hr Tmin: 97.4F (36.33c) at 09/05 15:00 Gen: awake, alert, no distress HEENT: R mastoid dressing in place, c/d/i Full facial strength bilaterally EOMI No nystagmus A/P: 42yoM s/p R retrosigmoid approach for acoustic neuroma -Doing well, no issues -Continue care per primary/NTICU -No further ENT intervention -Patient can follow up as scheduled with Dr. Lisandro Novak MD PGY-3 Otolaryngology [facility] #[id number]
--- OUTSIDE RECORDS SUMMARY | 2018-05-09 11:08 | XMS REPORT | Summary of Care ---
Author Author [facility] Organization [facility] Address Unknown Phone Unavailable Encounter HQ Encntr_alias(FIN) [id number] Date(s): 08/01/17 - 08/02/[address] [facility] [address], [address] [place] [phone] Vital Signs No data available for this section Problem List Condition Effective Dates Status Health Status Informant Morbid Active obesity(Confirmed) Allergies, Adverse Reactions, Alerts No data available for this section Medications No data available for this section Results No data available for this section Immunizations No data available for this section Procedures Procedure Date Related Diagnosis Body Site Status Appendectomy Completed Social History Social History Type Response Smoking Status Former smoker; Exposure to Tobacco Smoke Unable to obtain; Cigarette Smoking Last 365 Days Unable to obtain; Reg Smoking Cessation Counseling No entered on: 07/08/17 Assessment and Plan No data available for this section
--- OUTSIDE RECORDS SUMMARY | 2018-05-09 11:08 | XMS REPORT | Continuity of Care Document ---
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 01/19/2018 [facility] Vestibular schwannoma Active Problem 01/20/2018 [facility] Dizziness Active Problem 01/20/2018 [facility] Hearing loss Active Problem 01/20/2018 [facility] Hyperthyroidism Active Problem 01/20/2018 [facility] Extreme obesity Resolved Problem 01/20/2018 [facility] Tinnitus Active Problem 01/20/2018 [facility] Cerebral edema 12/15/2017 [facility] Hypocalcemia 12/15/2017 [facility] Coma scale, best motor response, obeys commands, at hospital admission 12/15/2017 [facility] Coma scale, eyes open, spontaneous, at hospital admission 12/15/2017 [facility] Coma scale, best verbal response, oriented, at hospital admission 12/15/2017 [facility] Vestibular schwannoma Active Problem 02/16/2018 [facility] Dizziness Active Problem 02/16/2018 [facility] Hyperthyroidism Active Problem 02/16/2018 [facility] Morbid obesity Resolved Problem 02/16/2018 [facility] Extreme obesity Resolved Problem 02/16/2018 [facility] Tinnitus Active Problem 02/16/2018 [facility] Hearing loss<sup>1</sup> Active Problem 02/16/2018 right [facility] Medications Medication Details Route Status Patient Instructions Ordering Provider Order Date Source ondansetron (ANES) Route: IV, Drug form: INJ, ONCE, Stop date: 02/13/18 11:46:00 CDT Inactive 02/13/2018 [facility] fentaNYL (ANES) Route: IV, Drug form: INJ, ONCE, Stop date: 02/13/18 11:40:00 CDT Inactive 02/13/2018 [facility] ceFAZolin (ANES) Route: IV, Drug form: INJ, ONCE, Stop date: 02/13/18 11:40:00 CDT Inactive 02/13/2018 [facility] dexamethasone (ANES) Route: IV, Drug form: INJ, ONCE, Stop date: 02/13/18 11:40:00 CDT Inactive 02/13/2018 [facility] lidocaine (ANES) Route: IV, Drug form: INJ, ONCE, Stop date: 02/13/18 11:40:00 CDT Inactive 02/13/2018 [facility] propofol (ANES) Route: IV, Drug form: INJ, ONCE, Stop date: 02/13/18 11:40:00 CDT Inactive 02/13/2018 [facility] midazolam (ANES) Route: IV, Drug form: SOLN, ONCE, Stop date: 02/13/18 11:30:00 CDT Inactive 02/13/2018 [facility] acetaminophen (ANES) 10 mg Route: IV, Drug form: INJ, Start date: 02/13/18 11:20:00 CDT, Stop date: 02/13/18 12:20:00 CDT Inactive 02/13/2018 [facility] Ondansetron 4 mg, 2 mL, Route: IVP, Drug form: INJ, ONCE, Dosing Weight 134.091, kg, PRN Nausea & Vomiting, Start date: 02/13/18 10:51:00 CDTNotes: (Same as: Zofran) MEDICATION WASTE Product Size: 4 mg Product Wasted: ___ mg No Longer Active 02/13/2018 [facility] Naloxone 0.4 mg, 1 mL, Route: IVP, Drug form: INJ, Q2MIN, Dosing Weight 134.091, kg, PRN Narcotic Reversal, Start date: 02/13/18 10:51:00 CDT, Duration: 8 doses or times, Stop date: 02/14/18 0:00:00 CDTNotes: Same as Narcan No Longer Active 02/13/2018 [facility] Flumazenil 0.2 mg, 2 mL, Route: IVP, Drug form: INJ, PRN, Dosing Weight 134.091, kg, PRN Benzodiazepine Reversal, Initial dose, Start date: 02/13/18 10:51:00 CDT, Duration: 30 day, Stop date: 03/15/18 10:50:00 CDTNotes: (Same as: Romazicon) No Longer Active 02/13/2018 [facility] Hydromorphone 0.5 mg, 0.25 mL, Route: IVP, Drug form: INJ, Q5Min, Dosing Weight 134.091, kg, PRN Pain Score 7-10, Start date: 02/13/18 10:51:00 CDT, Duration: 4 doses or times, Stop date: 02/14/18 0:00:00 CDTNotes: Same as Dilaudid No Longer Active 02/13/2018 [facility] Fentanyl 25 microgram, 0.5 mL, Route: IVP, Drug form: INJ, Q5Min, Dosing Weight 134.091, kg, PRN Pain Score 4-6, Priority: Routine, Start date: 02/13/18 10:51:00 CDT, Duration: 4 doses or times, Stop date: 02/14/18 0:00:00 CDTNotes: (Same as: Sublimaze) Preservative free. No Longer Active 02/13/2018 [facility] Oxycodone 5 mg, 1 tab, Route: PO, Drug form: TAB, Q4H, Dosing Weight 134.091, kg, PRN Pain Score 4-6, Start date: 02/13/18 10:51:00 CDT, Duration: 30 day, Stop date: 03/15/18 10:50:00 CDTNotes: (Same as: Roxic odone) No Longer Active 02/13/2018 [facility] Labetalol 10 mg, 2 mL, Route: IVP, Drug form: INJ, Q5Min, Dosing Weight 134.091, kg, PRN Elevated BP, Start date: 02/13/18 10:51:00 CDT, Duration: 5 doses or times, Stop date: 02/14/18 0:00:00 CDT No Longer Active 02/13/2018 [facility] esmolol 10 mg, 1 mL, Route: IVP, Drug form: INJ, Q5Min, Dosing Weight 134.091, kg, PRN Other -See Comment, Start date: 02/13/18 10:51:00 CDT, Duration: 5 doses or times, Stop date: 02/14/18 0:00:00 CDTNotes: (Same as: Brevibloc) No Longer Active 02/13/2018 [facility] Hydralazine 10 mg, 0.5 mL, Route: IVP, Drug form: INJ, Q20Min, Dosing Weight 134.091, kg, PRN Elevated BP, Start date: 02/13/18 10:51:00 CDT, Duration: 2 doses or times, Stop date: 02/14/18 0:00:00 CDTNotes: (Same as: Apresoline) Push over 5 minutes No Longer Active 02/13/2018 [facility] Lactated Ringers Injection IV (ANES) 1000 mL Route: IV, Total Volume: 1,000, Start date: 02/13/18 10:47:00 CDT, Stop date: 02/13/18 11:47:00 CDT Inactive 02/13/2018 [facility] ceFAZolin 3 gm, 150 mL, Route: IVPB, Drug form: INJ, PRE OP, Start date: 02/12/18 23:00:00 CDT, Duration: 1 day, Stop date: 02/13/18 22:59:00 CDT, ABX Indication: Surgical Prophylaxis No Longer Active 02/13/2018 [facility] ceFAZolin + sterile water 20 mL 2 gm, Route: IV, PRE OP, Start date: 02/12/18 23:00:00 CDT, Duration: 1 day, Stop date: 02/13/18 22:59:00 CDT, ABX Indication: Surgical ProphylaxisNotes: (Same As: Ancef, Kefzol) MEDICATION WASTE Product Size: 1000 mg Product Wasted: ___ mg Inactive 02/13/2018 [facility] magnesium citrate 58.2 MG/ML Oral Solution 150 ml, Route: PO, Drug Form: LIQ, Dosing Weight 137.818, kg, ONCE, PRN Constipation, Start date: 09/07/17 12:00:00 CSTNotes: (Same as: Citrate of Magnesia) Concentration: 1.745 gm / 30 mL Inactive 09/07/2017 [facility] Propranolol 20 mg, 1 tab, Route: PO, Drug form: TAB, Daily, Dosing Weight 137.818, kg, Start date: 09/07/17 9:00:00 GPS NAV[employer]ATION INSTALLER, Duration: 30 day, Stop date: 10/06/17 9:00:00 CDTNotes: Give with food. (Same as: Inderal) No Longer Active 09/07/2017 [facility] Methimazole 5 mg, 1 tab, Route: PO, Drug form: TAB, Q8H, Dosing Weight 137.818, kg, Start date: 09/06/17 16:00:00 GPS NAVIGATION INSTALLER, Duration: 30 day, Stop date: 10/06/17 8:00:00 CDT No Longer Active 09/06/2017 [facility] heparin sodium, porcine 2500 UNT/ML Injectable Solution 5,000 unit, 1 mL, Route: SUB-Q, Drug form: INJ, Q8H, Dosing Weight 137.818, kg, Start date: 09/06/17 16:00:00 [employer] NAV[employer]ATION INSTALLER, Duration: 30 day, Stop date: 10/06/17 8:00:00 CDTNotes: porcine heparin No Longer Active 09/06/2017 [facility] tramadol hydrochloride 50 MG Oral Tablet 50 mg=1 tab, PO, Q4H, PRN Pain, not to exceed 400 mg/day may alternate with Tylenol # 3, X 10 day, # 60 tab, 0 Refill(s) No Longer Active 09/06/2017 [facility] magnesium citrate 58.2 MG/ML Oral Solution 8.725 ky=163 ml, PO, ONCE, if no bowel movement in couple days, # 300 ml, 0 Refill(s), Pharmacy: [facility]/pharmacy #[id number] Active 09/06/2017 [facility] sennosides, [facility] 8.6 MG Oral Tablet 17.2 mg=2 tab, PO, Bedtime, PRN Constipation, X 10 day, # 20 tab, 0 Refill(s), Pharmacy: [facility]/pharmacy #[id number] No Longer Active 09/06/2017 [facility] Ondansetron 4 MG Oral Tablet [Zofran] 4 mg=1 tab, PO, Q8H, PRN Nausea/vomiting, # 30 tab, 0 Refill(s), Pharmacy: [facility]/pharmacy #[id number] Active 09/06/2017 [facility] Acetaminophen 300 MG / Codeine Phosphate 30 MG Oral Tablet [Tylenol with Codeine #3] 1 tab, PO, Q6H, PRN Pain, not to exceed 4000 mg acetaminophen per day, X 15 day, # 60 tab, 0 Refill(s) No Longer Active 09/06/2017 [facility] Docusate Sodium 100 MG Oral Capsule [Colace] 100 mg=1 cap, PO, BID, # 28 cap, 0 Refill(s), Pharmacy: [facility]/pharmacy #[id number] Active 09/06/2017 [facility] Reglan 10 mg, 2 mL, Route: IVP, Drug form: INJ, Q6H, Dosing Weight 137.818, kg, PRN Nausea & Vomiting, Start date: 09/06/17 12:33:00 GPS NAV[employer]ATION INSTALLER, Duration: 30 day, Stop date: 10/06/17 12:32:00 CDTNotes: (Same as: Reglan) No Longer Active 09/06/2017 [facility] Acetaminophen 325 MG / Hydrocodone Bitartrate 10 MG Oral Tablet [[place] 10/325] 2 tab, Route: PO, Drug Form: TAB, Dosing Weight 137.818, kg, Q6H, PRN Pain Score 7-10, Start date: 09/06/17 12:18:00 [employer] NAV[employer]ATION INSTALLER, Duration: 30 day, Stop date: 10/06/17 12:17:00 CDTNotes: Do not exceed 4gm/day of acetaminophen. (Same as: [place] 325/10) No Longer Active 09/06/2017 [facility] Insulin regular 2 unit, 0.02 mL, Route: SUB-Q, Drug form: SOLN, TID-Before Meals, Dosing Weight 136.052, kg, PRN Blood Glucose Results, Start date: 09/06/17 4:19:00 [employer] NAV[employer]ATION INSTALLER, Duration: 30 day, Stop date: 10/06/17 4:18:00 CDTNotes: (Same as: Humulin R) Roll in palms of hands gently; Do not shake vigorously. "single patient use only" (Restricted to patients requiring a dose > 60 units) WASTE: F/P - Black; E - Municipal Trash Bin Stable for 28 days at room temperature Expires in days from Date Inactive 09/06/2017 [facility] Dextrose 50% Syringe 25 gm, 50 mL, Route: IVP, Drug Form: INJ, Dosing Weight 136.052, kg, PRN, PRN Blood Glucose Results, Start date: 09/06/17 4:19:00 [employer] NAV[employer]ATION INSTALLER, Duration: 30 day, Stop date: 10/06/17 5:18:00 CDT Inactive 09/06/2017 [facility] Glucagon 1 mg, Route: IM, Drug form: PDR/INJ, PRN, Dosing Weight 136.052, kg, PRN Blood Glucose Results, Start date: 09/06/17 4:19:00 [employer] NAV[employer]ATION INSTALLER, Duration: 30 day, Stop date: 10/06/17 5:18:00 CDT Inactive 09/06/2017 [facility] Magnesium Sulfate 2 gm, 50 mL, Route: IVPB, Drug form: INJ, PRN, Dosing Weight 136.052, kg, PRN Abnormal Lab Result, Start date: 09/06/17 2:42:00 [employer] NAV[employer]ATION INSTALLER, Duration: 30 day, Stop date: 10/06/17 3:41:00 CDT, FOR ICU USE ONLYNotes: WASTE: F/P - Sink; E - Municipal Trash Bin No Longer Active 09/06/2017 [facility] Magnesium Oxide 800 mg, 2 tab, Route: PO, Drug form: TAB, PRN, Dosing Weight 136.052, kg, PRN Abnormal Lab Result, FOR ICU USE ONLY, Start date: 09/06/17 2:42:00 GPS NAVIGATION INSTALLER, Duration: 30 day, Stop date: 10/06/17 3:41:00 CDTNotes: (Same as: Mag-Ox 400) Magnesium oxide [id number] elemental magnesium Dose=____mg magnesium oxide (___mg elemental magnesium) No Longer Active 09/06/2017 [facility] Calcium Carbonate 500 MG Chewable Tablet 500 mg, 1 tab, Route: PO, Drug form: CHEWTAB, PRN, Dosing Weight 136.052, kg, PRN Abnormal Lab Result, FOR ICU USE ONLY, Start date: 09/06/17 2:42:00 [employer] NAVIGATION INSTALLER, Duration: 30 day, Stop date: 10/06/17 3:41:00 CDTNotes: (Same As: Tums) Calcium Carbonate 500 pz=781 mg elemental calcium Dose= mg calcium carbonate ( mg elemental calcium) No Longer Active 09/06/2017 [facility] Calcium Gluconate 1 gm, 10 mL, Route: IVPB, PRN, Dosing Weight 136.052, kg, PRN Abnormal Lab Result, Start date: 09/06/17 2:42:00 [employer] NAVIGATION INSTALLER, Duration: 30 day, Stop date: 10/06/17 3:41:00 CDT, FOR ICU USE ONLYNotes: WASTE: F/P - Sink; E - Municipal Trash Bin No Longer Active 09/06/2017 [facility] potassium phosphate 30 mmol, 10 mL, Route: IVPB, PRN, Dosing Weight 136.052, kg, PRN Abnormal Lab Result, Start date: 09/06/17 2:42:00 [employer] NAVIGATION INSTALLER, Duration: 30 day, Stop date: 10/06/17 3:41:00 CDT, FOR ICU USE ONLYNotes: (Same as: K Phosphate.) 1 mMol phoshate has 1.47 mEq potassium Infuse over 4 hours No Longer Active 09/06/2017 [facility] potassium phosphate-sodium phosphate 250 mg-280 mg-160 mg oral powder for reconstitution 2 pkt, Route: PO, Drug Form: PDR/REC, Dosing Weight 136.052, kg, PRN, PRN Abnormal Lab Result, FOR ICU USE ONLY, Start date: 09/06/17 2:42:00 GPS NAVIGATION INSTALLER, Duration: 30 day, Stop date: 10/06/17 3:41:00 CDTNotes: (Same as: Phos-NaK) Each 1.5 gm pkt has 250mg phosphorous. Mix w/2.5oz water and stir. No Longer Active 09/06/2017 [facility] sodium phosphate 15 mmol, 5 mL, Route: IVPB, PRN, Dosing Weight 136.052, kg, PRN Abnormal Lab Result, Start date: 09/06/17 2:42:00 [employer] NAVIGATION INSTALLER, Duration: 30 day, Stop date: 10/06/17 3:41:00 CDT, FOR ICU USE ONLY No Longer Active 09/06/2017 [facility] Potassium Chloride 20 mEq, 15 mL, Route: NJ, Drug form: LIQ, PRN, Dosing Weight 136.052, kg, PRN Abnormal Lab Result, Start date: 09/06/17 2:42:00 GPS NAVIGATION INSTALLER, Duration: 30 day, Stop date: 10/06/17 3:41:00 CDT, FOR ICU USE ONLYNotes: (Same as: Potassium Chloride) No Longer Active 09/06/2017 [facility] Ibuprofen 400 mg, 1 tab, Route: PO, Drug form: TAB, Q4H, Dosing Weight 136.052, kg, PRN Pain Score 1-3, Start date: 09/05/17 23:36:00 GPS NAVIGATION INSTALLER, Duration: 30 day, Stop date: 10/05/17 23:35:00 CDTNotes: (Same as: Motrin) "Do Not Crush" Give with food. No Longer Active 09/06/2017 [facility] Reglan 10 mg, 2 mL, Route: IVP, Drug form: INJ, ONCE, Dosing Weight 136.052, kg, Priority: NOW, Start date: 09/05/17 23:16:00 GPS NAVIGATION INSTALLER, Stop date: 09/05/17 23:16:00 CSTNotes: (Same as: Reglan) Inactive 09/06/2017 [facility] Hydralazine 10 mg, 0.5 mL, Route: IVP, Drug form: INJ, Q2H, Dosing Weight 136.052, kg, PRN Hypertension, Priority: NOW, Start date: 09/05/17 20:18:00 GPS NAVIGATION INSTALLER, Duration: 30 day, Stop date: 10/05/17 20:17:00 CDTNotes: (Same as: Apresoline) Push over 5 minutes No Longer Active 09/06/2017 [facility] ceFAZolin (SCIP) + sterile water 20 mL 2 gm, Route: IVPB, ABXQ8H, Dosing Weight 136.364, kg, Start date: 09/05/17 19:30:00 GPS NAVIGATION INSTALLER, Duration: 3 doses or times, Stop date: 09/06/17 11:30:00 GPS NAVIGATION INSTALLER, ABX Indication: Surgical ProphylaxisNotes: (Same As: Tiffani Chen) MEDICATION WASTE Product Size: 1000 mg Product Wasted: ___ mg No Longer Active 09/06/2017 [facility] ondansetron (ANES) Route: IV, Drug form: INJ, ONCE, Stop date: 09/05/17 13:46:00 GPS NAVIGATION INSTALLER Inactive 09/05/2017 [facility] Dexamethasone 4 mg, 1 tab, Route: PO, Drug form: TAB, Q6H, Dosing Weight 136.364, kg, Start date: 09/05/17 12:00:00 GPS NAVIGATION INSTALLER, Duration: 30 day, Stop date: 10/05/17 6:00:00 CDTNotes: Give with food. (Same As: Decadron) No Longer Active 09/05/2017 [facility] Oxycodone 10 mg, Route: PO, Drug form: TAB, Q4H, Dosing Weight 136.364, kg, PRN Pain Score 7-10, Start date: 09/05/17 11:22:00 GPS NAVIGATION INSTALLER, Duration: 30 day, Stop date: 10/05/17 11:21:00 CDT Inactive 09/05/2017 [facility] Hydromorphone 0.5 mg, Route: IVP, Q5Min, Dosing Weight 136.364, kg, PRN Pain Score 7-10, Start date: 09/05/17 11:22:00 GPS NAVIGATION INSTALLER, Duration: 4 doses or times, Stop date: Limited # of times Inactive 09/05/2017 [facility] Flumazenil 0.2 mg, Route: IVP, PRN, Dosing Weight 136.364, kg, PRN Benzodiazepine Reversal, Initial dose, Start date: 09/05/17 11:22:00 GPS NAVIGATION INSTALLER, Duration: 30 day, Stop date: 10/05/17 12:21:00 CDT Inactive 09/05/2017 [facility] Naloxone 0.4 mg, Route: IVP, Q2MIN, Dosing Weight 136.364, kg, PRN Narcotic Reversal, Start date: 09/05/17 11:22:00 GPS NAVIGATION INSTALLER, Duration: 8 doses or times, Stop date: Limited # of times Inactive 09/05/2017 [facility] Ondansetron 4 mg, Route: IVP, ONCE, Dosing Weight 136.364, kg, PRN Nausea & Vomiting, Start date: 09/05/17 11:22:00 GPS NAVIGATION INSTALLER Inactive 09/05/2017 [facility] Fentanyl 25 microgram, Route: IVP, Q5Min, Dosing Weight 136.364, kg, PRN Pain Score 4-6, Priority: Routine, Start date: 09/05/17 11:22:00 GPS NAVIGATION INSTALLER, Duration: 4 doses or times, Stop date: Limited # of times Inactive 09/05/2017 [facility] Labetalol 10 mg, Route: IVP, Q5Min, Dosing Weight 136.364, kg, PRN Elevated BP, Start date: 09/05/17 11:22:00 GPS NAVIGATION INSTALLER, Duration: 5 doses or times, Stop date: Limited # of times Inactive 09/05/2017 [facility] Hydralazine 10 mg, Route: IVP, Q20Min, Dosing Weight 136.364, kg, PRN Elevated BP, Start date: 09/05/17 11:22:00 GPS NAVIGATION INSTALLER, Duration: 2 doses or times, Stop date: Limited # of times Inactive 09/05/2017 [facility] norepinephrine (ANES) Route: IV, Drug form: INJ, ONCE, Stop date: 09/05/17 10:06:00 GPS NAVIGATION INSTALLER Inactive 09/05/2017 [facility] dexamethasone (ANES) Route: IV, Drug form: INJ, ONCE, Stop date: 09/05/17 9:37:00 GPS NAVIGATION INSTALLER Inactive 09/05/2017 [facility] Sodium Chloride 0.9% IV (ANES) 500 mL Route: IV, Total Volume: 500, Start date: 09/05/17 9:30:00 GPS NAVIGATION INSTALLER, Stop date: 09/05/17 10:30:00 GPS NAVIGATION INSTALLER Inactive 09/05/2017 [facility] acetaminophen (ANES) 10 mg Route: IV, Drug form: INJ, Start date: 09/05/17 9:30:00 GPS NAVIGATION INSTALLER, Stop date: 09/05/17 10:30:00 GPS NAVIGATION INSTALLER Inactive 09/05/2017 [facility] Sodium Chloride 0.9% IV 1,000 mL 1,000 mL, Rate: 125 ml/hr, Infuse over: 8 hr, Route: IV, Dosing Weight 136.364 kg, Total Volume: 1,000, Start date: 09/05/17 9:24:00 GPS NAVIGATION INSTALLER, Duration: 30 day, Stop date: 10/05/17 9:23:00 CDT, 2.63, m2 No Longer Active 09/05/2017 [facility] ceFAZolin (ANES) Route: IV, Drug form: INJ, ONCE, Stop date: 09/05/17 9:08:00 GPS NAVIGATION INSTALLER Inactive 09/05/2017 [facility] glycopyrrolate (ANES) Route: IV, Drug form: INJ, ONCE, Stop date: 09/05/17 9:08:00 GPS NAVIGATION INSTALLER Inactive 09/05/2017 [facility] fentaNYL (ANES) Route: IV, Drug form: INJ, ONCE, Stop date: 09/05/17 9:08:00 GPS NAVIGATION INSTALLER Inactive 09/05/2017 [facility] succinylcholine (ANES) Route: IV, Drug form: INJ, ONCE, Stop date: 09/05/17 9:08:00 GPS NAVIGATION INSTALLER Inactive 09/05/2017 [facility] rocuronium (ANES) Route: IV, Drug form: INJ, ONCE, Stop date: 09/05/17 9:08:00 GPS NAVIGATION INSTALLER Inactive 09/05/2017 [facility] propofol (ANES) Route: IV, Drug form: INJ, ONCE, Stop date: 09/05/17 9:08:00 GPS NAVIGATION INSTALLER Inactive 09/05/2017 [facility] lidocaine (ANES) Route: IV, Drug form: INJ, ONCE, Stop date: 09/05/17 9:08:00 GPS NAVIGATION INSTALLER Inactive 09/05/2017 [facility] midazolam (ANES) Route: IV, Drug form: SOLN, ONCE, Stop date: 09/05/17 9:08:00 GPS NAVIGATION INSTALLER Inactive 09/05/2017 [facility] Saline Flush 0.9% 10 ml, Route: IVP, Drug Form: INJ, Dosing Weight 136.364, kg, Q12H, Start date: 09/05/17 9:00:00 GPS NAVIGATION INSTALLER, Duration: 30 day, Stop date: 10/04/17 21:00:00 CDTNotes: Same as: BD Posiflush Sterile No Longer Active 09/05/2017 [facility] Docusate 100 mg, 1 cap, Route: PO, Drug form: CAP, Q12H, Dosing Weight 136.364, kg, Start date: 09/05/17 9:00:00 GPS NAVIGATION INSTALLER, Duration: 30 day, Stop date: 10/04/17 21:00:00 CDTNotes: (Same as: Colace) (Do Not Crush) No Longer Active 09/05/2017 [facility] sennosides, [facility] 8.6 mg, 1 tab, Route: PO, Drug Form: TAB, Dosing Weight 136.364, kg, Q12H, Start date: 09/05/17 9:00:00 GPS NAVIGATION INSTALLER, Duration: 30 day, Stop date: 10/04/17 21:00:00 CDTNotes: (Same as: Senokot) No Longer Active 09/05/2017 [facility] Famotidine 20 mg, 2 mL, Route: IVP, Drug form: INJ, Q12H, Dosing Weight 136.364, kg, Start date: 09/05/17 9:00:00 GPS NAVIGATION INSTALLER, Duration: 30 day, Stop date: 10/04/17 21:00:00 CDTNotes: (Same as: Pepcid) No Longer Active 09/05/2017 [facility] propofol (ANES) 10 mg Route: IV, Drug form: INJ, Start date: 09/05/17 8:22:00 GPS NAVIGATION INSTALLER, Stop date: 09/05/17 9:22:00 GPS NAVIGATION INSTALLER Inactive 09/05/2017 [facility] dexmedetomidine (ANES) 200 microgram Route: IV, Drug form: INJ, Start date: 09/05/17 8:20:00 GPS NAVIGATION INSTALLER, Stop date: 09/05/17 9:20:00 GPS NAVIGATION INSTALLER Inactive 09/05/2017 [facility] Cefazolin 2 gm, Route: IVPB, Q8H, Dosing Weight 136.364, kg, Start date: 09/05/17 8:00:00 GPS NAVIGATION INSTALLER, Duration: 3 doses or times, Stop date: 09/06/17 0:00:00 GPS NAVIGATION INSTALLER, ABX Indication: Surgical ProphylaxisNotes: (Same As: Anc ef, Kefzol) MEDICATION WASTE Product Size: 1000 mg Product Wasted: ___ mg Inactive 09/05/2017 [facility] Tylenol PO, 0 Refill(s) No Longer Active 09/05/2017 [facility] Lactated Ringers Injection IV (ANES) 1000 mL Route: IV, Total Volume: 1,000, Start date: 09/05/17 7:36:00 GPS NAVIGATION INSTALLER, Stop date: 09/05/17 8:36:00 GPS NAVIGATION INSTALLER Inactive 09/05/2017 [facility] Saline Flush 0.9% 10 ml, Route: IVP, Drug Form: INJ, Dosing Weight 136.364, kg, PRN, PRN Line Flush, Start date: 09/05/17 6:30:00 GPS NAVIGATION INSTALLER, Duration: 30 day, Stop date: 10/05/17 7:29:00 CDTNotes: Same as: BD Posiflush Sterile No Longer Active 09/05/2017 [facility] Promethazine 12.5 mg, 0.5 mL, Route: IVPB, Drug form: INJ, Q6H, Dosing Weight 136.364, kg, PRN Nausea & Vomiting, Start date: 09/05/17 6:30:00 GPS NAVIGATION INSTALLER, Duration: 30 day, Stop date: 10/05/17 6:29:00 CDTNotes: (Same as: Phenergan) No Longer Active 09/05/2017 [facility] Bisacodyl 10 mg, 1 supp, Route: WI, Drug form: SUPP, Daily, Dosing Weight 136.364, kg, PRN Constipation, Start date: 09/05/17 6:30:00 GPS NAVIGATION INSTALLER, Duration: 30 day, Stop date: 10/05/17 6:29:00 CDTNotes: (Same As: Dulcolax, Bisco-Lax) No Longer Active 09/05/2017 [facility] Ondansetron 4 mg, 2 mL, Route: IVP, Drug form: INJ, Q8H, Dosing Weight 136.364, kg, PRN Nausea & Vomiting, Start date: 09/05/17 6:30:00 GPS NAVIGATION INSTALLER, Duration: 30 day, Stop date: 10/05/17 6:29:00 CDTNotes: (Same as: Zofran) MEDICATION WASTE Product Size: 4 mg Product Wasted: ___ mg No Longer Active 09/05/2017 [facility] Acetaminophen 325 MG / Hydrocodone Bitartrate 5 MG Oral Tablet 1 tab, Route: PO, Drug Form: TAB, Dosing Weight 136.364, kg, Q4H, PRN Pain Score 1-3, Start date: 09/05/17 6:30:00 GPS NAVIGATION INSTALLER, Duration: 30 day, Stop date: 10/05/17 6:29:00 CDTNotes: (Same as: [place] 325/5) Do not exceed 4gm/day of acetaminophen. No Longer Active 09/05/2017 [facility] Acetaminophen 325 MG / Hydrocodone Bitartrate 10 MG Oral Tablet 1 tab, Route: PO, Drug Form: TAB, Dosing Weight 136.364, kg, Q4H, PRN Pain Score 4-6, Start date: 09/05/17 6:30:00 [employer], Duration: 30 day, Stop date: 10/05/17 6:29:00 CDTNotes: Do not exceed 4gm/day of acetaminophen. (Same as: [place] 325/10) No Longer Active 09/05/2017 [facility] Sodium Chloride 0.9% IV 1,000 mL 1,000 mL, Rate: 75 ml/hr, Infuse over: 13.3 hr, Route: IV, Dosing Weight 136.364 kg, Total Volume: 1,000, Start date: 09/05/17 6:30:00 [employer] INSTALLER, Duration: 30 day, Stop date: 10/05/17 6:29:00 CDT, 2.63, m2 Inactive 09/05/2017 [facility] Dilaudid 0.5 mg, 0.25 mL, Route: IVP, Drug form: INJ, Q4H, Dosing Weight 136.364, kg, PRN Pain Score 7-10, Start date: 09/05/17 6:29:00 [employer], Duration: 30 day, Stop date: 10/05/17 6:28:00 CDTNotes: Same as Dilaudid No Longer Active 09/05/2017 [facility] Propranolol 10 mg=1 tab, PO, Daily Active 09/02/2017 [facility] Excedrin 2 tab, PO, PRN No Longer Active 09/02/2017 [facility] methimazole 5 mg oral tablet 5 mg=1 tab, PO, Q8H, 0 Refill(s) Active 07/08/2017 [facility] propranolol 20 mg oral tablet 20 mg=1 tab, PO, BID, 0 Refill(s) Active 07/08/2017 [facility] Allergies, Adverse Reactions, Alerts Substance Category Reaction Severity Reaction type Status Date Reported Comments Source Vicodin Assertion Nausea and vomiting Propensity to adverse reactions to drug Active [facility] Immunizations Immunization Date Given Site Status Last Updated Comments Source Results Order Name Results Value Reference Range Date Interpretation Comments Source ELECTROLYTES CO2 24 meq/L 24 - 32 02/13/2018 [facility] ELECTROLYTES Calcium Lvl 8.5 mg/dL 8.5 - 10.5 02/13/2018 [facility] ELECTROLYTES Chloride Lvl 109 meq/L 95 - 109 02/13/2018 [facility] ELECTROLYTES Potassium Lvl 3.9 meq/L 3.5 - 5.1 02/13/2018 [facility] ELECTROLYTES AGAP 13.9 meq/L 10.0 - 20.0 02/13/2018 [facility] ELECTROLYTES eGFR 95 mL/min/1.73m2 02/13/2018 Result Comment: The eGFR is calculated using the [...] from the National Kidney Disease Education Program (NKDEP) which additionally recommends that when the eGFR is used in patients with extremes of body mass index for purposes of drug dosing, the eGFR should be multiplied by the estimated BMI. 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 Comparison: CT brain without contrast dated 09/05/2017 TECHNIQUE: Multiplanar, multiecho magnetic resonance imaging of the brain and internal auditory canals is performed without and with contrast on a 3.0 Sowmya magnet. Contrast enhanced images are acquired following intravenous administration of 20 cc dotarem. GFR 94. SL: [id number] A few tiny, scattered foci of T2/FLAIR hyperintensity are present in the white matter of the cerebral hemispheres. are nonspecific and are probably not clinically significant. A right retromastoid craniotomy is present. Enhancing soft tissue is present along the posterior margin of the right petrous ridge and posterior right internal auditory canal measuring 1.3 cm CC by 1.1 cm TR by 0.4 cm AP. This could represent residual tumor, postoperative granulation tissue or a combination of both. There is minimal T1 hyperintensity in the right cochlea. Right-sided cochlear and vestibular enhancement is also present, probably reactive or inflammatory in etiology. Comparison with previous MRI of the brain and internal auditory canals is recommended. The left internal auditory canal is normal in appearance. Left-sided cochlear and vestibular structures are unremarkable. No pathologic facial nerve enhancements are seen on either side.. No intra-axial mass, mass effect or extra-axial fluid collection is identified. No subacute or chronic blood products are seen. There is no evidence for acute ischemia on diffusion-weighted images. Ventricles, sulci and basal cisterns are within normal limits for age. Normal flow voids are present in the arterial vessels at the skull base. Flow voids in the dural venous sinuses are normal. The pituitary and cavernous sinuses are unremarkable. A few small retention cysts in the inferior right maxillary antrum causes mild right maxillary sinus opacification. Mild to moderate inferior right mastoid air cell opacification is present. Orbital structures are grossly unremarkable. IMPRESSION: Right retromastoid craniotomy defect noted. There is enhancing soft tissue along the posterior margin of the right internal auditory canal measuring approximately 1.3 cm CC by 1.1 cm TR by 0.4 cm AP. The appearance could reflect postoperative granulation tissue, residual tumor or a combination of both. Granulation tissue is the favored etiology, given the appearance of the mass on the previous CT brain with contrast, but evaluation is somewhat limited without preoperative MR images. Correlation with operative notes is suggested. Comparison with previous MRI is strongly recommended. An addendum report can be issued once comparison MRI is available for review. Mild cochlear and vestibular enhancement on the right is likely reactive and postoperative in nature, but again, comparison with previous studies is suggested. SL: [id number] 10/13/2017 - - Read by: Mala Simmons MD Dictated Date/time: 10/13/17 09:48 Electronically Signed by: Mala Simmons MD 10/13/17 11:02 FINAL REPORT [facility] CHEM PANEL Phosphorus 2.3 mg/dL 2.5 - 4.5 09/07/2017 [facility] CHEM PANEL eGFR 96 mL/min/1.73m2 09/07/2017 Result Comment: The eGFR is calculated using the [...] from the National Kidney Disease Education Program (NKDEP) which additionally recommends that when the eGFR is used in patients with extremes of body mass index for purposes of drug dosing, the eGFR should be multiplied by the estimated BMI. [facility] CHEM PANEL Sodium Lvl 140 meq/L 135 - 145 09/07/2017 [facility] CHEM PANEL CO2 25 meq/L 24 - 32 09/07/2017 [facility] CHEM PANEL Potassium Lvl 4.6 meq/L 3.5 - 5.1 09/07/2017 [facility] CHEM PANEL Creatinine Lvl 0.98 mg/dL 0.50 - 1.40 09/07/2017 [facility] CHEM PANEL BUN 14 mg/dL 7 - 22 09/07/2017 [facility] CHEM PANEL Chloride Lvl 108 meq/L 95 - 109 09/07/2017 [facility] CHEM PANEL Glucose Lvl 135 mg/dL 70 - 99 09/07/2017 [facility] CHEM PANEL Calcium Lvl 8.4 mg/dL 8.5 - 10.5 09/07/2017 [facility] CHEM PANEL AGAP 11.6 meq/L 10.0 - 20.0 09/07/2017 [facility] CHEM PANEL Magnesium Lvl 2.3 mg/dL 1.8 - 2.4 09/07/2017 [facility] HEMATOLOGY Platelet 209 K/CMM 133 - 450 09/07/2017 [facility] HEMATOLOGY MCHC 34.0 g/dL 32.0 - 36.0 09/07/2017 [facility] HEMATOLOGY RDW 12.8 % 11.5 - 14.5 09/07/2017 [facility] HEMATOLOGY MCH 30.1 pg 27.0 - 31.0 09/07/2017 [facility] HEMATOLOGY MPV 10.9 fL 7.4 - 10.4 09/07/2017 [facility] HEMATOLOGY MCV 88.5 fL 80.0 - 94.0 09/07/2017 [facility] HEMATOLOGY Hct 39.9 % 42.0 - 54.0 09/07/2017 [facility] HEMATOLOGY WBC 16.7 K/CMM 3.7 - 10.4 09/07/2017 [facility] HEMATOLOGY Hgb 13.6 g/dL 14.0 - 18.0 09/07/2017 [facility] HEMATOLOGY RBC 4.51 M/CMM 4.70 - 6.10 09/07/2017 [facility] HEMATOLOGY Segs-Bands # 13.8 K/CMM 1.5 - 8.1 09/07/2017 [facility] HEMATOLOGY Monocytes 5.2 % 2.0 - 12.0 09/07/2017 [facility] HEMATOLOGY Basophils 0.4 % 0.0 - 1.0 09/07/2017 [facility] HEMATOLOGY Monocytes # 0.9 K/CMM 0.0 - 0.8 09/07/2017 [facility] HEMATOLOGY Basophils # 0.1 K/CMM 0.0 - 0.2 09/07/2017 [facility] HEMATOLOGY Lymphocytes # 2.0 K/CMM 1.0 - 5.5 09/07/2017 [facility] HEMATOLOGY Lymphocytes 11.8 % 20.0 - 40.0 09/07/2017 [facility] HEMATOLOGY Segs 82.6 % 45.0 - 75.0 09/07/2017 [facility] PARATHYROID PROFILE Ca Ion WB 1.07 mMol/L 1.05 - 1.25 09/07/2017 [facility] PARATHYROID PROFILE Ca Norm WB 1.06 mMol/L 1.05 - 1.25 09/07/2017 [facility] CHEM PANEL Osmolality 296 mOsm/kg 280 - 300 09/06/2017 [facility] ELECTROLYTES Sodium Lvl 142 meq/L 135 - 145 09/06/2017 [facility] URINE CHEM U Osmolality 273 mOsm/kg 300 - 800 09/06/2017 [facility] URINE CHEM U Sodium 60 meq/L 09/06/2017 [facility] CHEM PANEL Phosphorus 2.6 mg/dL 2.5 - 4.5 09/06/2017 [facility] CHEM PANEL Magnesium Lvl 1.9 mg/dL 1.8 - 2.4 09/06/2017 [facility] CHEM PANEL eGFR 108 mL/min/1.73m2 09/06/2017 Result Comment: The eGFR is calculated using the [...] from the National Kidney Disease Education Program (NKDEP) which additionally recommends that when the eGFR is used in patients with extremes of body mass index for purposes of drug dosing, the eGFR should be multiplied by the estimated BMI. [facility] CHEM PANEL CO2 24 meq/L 24 - 32 09/06/2017 [facility] CHEM PANEL Calcium Lvl 8.0 mg/dL 8.5 - 10.5 09/06/2017 [facility] CHEM PANEL Chloride Lvl 106 meq/L 95 - 109 09/06/2017 [facility] CHEM PANEL Sodium Lvl 140 meq/L 135 - 145 09/06/2017 [facility] CHEM PANEL Potassium Lvl 3.7 meq/L 3.5 - 5.1 09/06/2017 [facility] CHEM PANEL Creatinine Lvl 0.88 mg/dL 0.50 - 1.40 09/06/2017 [facility] CHEM PANEL BUN 10 mg/dL 7 - 22 09/06/2017 [facility] CHEM PANEL Glucose Lvl 157 mg/dL 70 - 99 09/06/2017 [facility] CHEM PANEL AGAP 13.7 meq/L 10.0 - 20.0 09/06/2017 [facility] HEMATOLOGY RDW 12.7 % 11.5 - 14.5 09/06/2017 [facility] HEMATOLOGY MCHC 34.4 g/dL 32.0 - 36.0 09/06/2017 [facility] HEMATOLOGY Platelet 210 K/CMM 133 - 450 09/06/2017 [facility] HEMATOLOGY MPV 11.1 fL 7.4 - 10.4 09/06/2017 [facility] HEMATOLOGY RBC 4.69 M/CMM 4.70 - 6.10 09/06/2017 [facility] HEMATOLOGY MCV 86.4 fL 80.0 - 94.0 09/06/2017 [facility] HEMATOLOGY MCH 29.8 pg 27.0 - 31.0 09/06/2017 [facility] HEMATOLOGY Hgb 13.9 g/dL 14.0 - 18.0 09/06/2017 [facility] HEMATOLOGY Hct 40.5 % 42.0 - 54.0 09/06/2017 [facility] HEMATOLOGY WBC 15.5 K/CMM 3.7 - 10.4 09/06/2017 [facility] HEMATOLOGY Monocytes # 0.5 K/CMM 0.0 - 0.8 09/06/2017 [facility] HEMATOLOGY Lymphocytes # 1.4 K/CMM 1.0 - 5.5 09/06/2017 [facility] HEMATOLOGY Lymphocytes 9.1 % 20.0 - 40.0 09/06/2017 [facility] HEMATOLOGY Segs 87.9 % 45.0 - 75.0 09/06/2017 [facility] HEMATOLOGY Monocytes 2.9 % 2.0 - 12.0 09/06/2017 [facility] HEMATOLOGY Basophils 0.1 % 0.0 - 1.0 09/06/2017 [facility] HEMATOLOGY Segs-Bands # 13.6 K/CMM 1.5 - 8.1 09/06/2017 [facility] PARATHYROID PROFILE Ca Ion WB 1.08 mMol/L 1.05 - 1.25 09/06/2017 [facility] PARATHYROID PROFILE Ca Norm WB 1.07 mMol/L 1.05 - 1.25 09/06/2017 [facility] BACTERIAL - SEROLOGY MRSA by PCR Negative (09/05/17 6:21 PM) 09/06/2017 [facility] CHEM PANEL eGFR 82 mL/min/1.73m2 09/05/2017 Result Comment: The eGFR is calculated using the [...] from the National Kidney Disease Education Program (NKDEP) which additionally recommends that when the eGFR is used in patients with extremes of body mass index for purposes of drug dosing, the eGFR should be multiplied by the estimated BMI. [facility] CHEM PANEL Chloride Lvl 105 meq/L 95 - 109 09/05/2017 [facility] CHEM PANEL Glucose Lvl 153 mg/dL 70 - 99 09/05/2017 [facility] CHEM PANEL BUN 13 mg/dL 7 - 22 09/05/2017 [facility] CHEM PANEL Potassium Lvl 4.2 meq/L 3.5 - 5.1 09/05/2017 [facility] CHEM PANEL Creatinine Lvl 1.12 mg/dL 0.50 - 1.40 09/05/2017 [facility] CHEM PANEL CO2 24 meq/L 24 - 32 09/05/2017 [facility] CHEM PANEL Calcium Lvl 8.4 mg/dL 8.5 - 10.5 09/05/2017 [facility] CHEM PANEL AGAP 13.2 meq/L 10.0 - 20.0 09/05/2017 [facility] HEMATOLOGY Monocytes 1.1 % 2.0 - 12.0 09/05/2017 [facility] HEMATOLOGY Lymphocytes 16.3 % 20.0 - 40.0 09/05/2017 [facility] HEMATOLOGY Monocytes # 0.1 K/CMM 0.0 - 0.8 09/05/2017 [facility] HEMATOLOGY Lymphocytes # 1.6 K/CMM 1.0 - 5.5 09/05/2017 [facility] HEMATOLOGY Eosinophils 0.2 % 0.0 - 4.0 09/05/2017 [facility] HEMATOLOGY Segs-Bands # 8.3 K/CMM 1.5 - 8.1 09/05/2017 [facility] HEMATOLOGY Basophils 0.3 % 0.0 - 1.0 09/05/2017 [facility] HEMATOLOGY Segs 82.1 % 45.0 - 75.0 09/05/2017 [facility] HEMATOLOGY MPV 10.7 fL 7.4 - 10.4 09/05/2017 [facility] HEMATOLOGY MCV 87.7 fL 80.0 - 94.0 09/05/2017 [facility] HEMATOLOGY Hct 40.7 % 42.0 - 54.0 09/05/2017 [facility] HEMATOLOGY MCHC 33.8 g/dL 32.0 - 36.0 09/05/2017 [facility] HEMATOLOGY MCH 29.7 pg 27.0 - 31.0 09/05/2017 [facility] HEMATOLOGY Platelet 216 K/CMM 133 - 450 09/05/2017 [facility] HEMATOLOGY RDW 12.5 % 11.5 - 14.5 09/05/2017 [facility] HEMATOLOGY Hgb 13.8 g/dL 14.0 - 18.0 09/05/2017 [facility] HEMATOLOGY RBC 4.64 M/CMM 4.70 - 6.10 09/05/2017 [facility] HEMATOLOGY WBC 10.1 K/CMM 3.7 - 10.4 09/05/2017 [facility] BLOOD BANK RESULTS ABO/Rh A POS 09/05/2017 [facility] BLOOD BANK RESULTS Antibody Scrn Negative (09/05/17 6:09 AM) 09/05/2017 [facility] Brain w contrast CT Brain w contrast CT Exam: CT brain with contrast, stealth protocol. INDICATION: Preoperative planning. COMPARISON: None. TECHNIQUE: 100 cc Omnipaque 350 was administered for stealth protocol brain CT. Discussion: No subfalcine or downward transtentorial herniation. No hydrocephalus. IMPRESSION: Images are adequate for localization. 09/05/2017 - - Read by: Janeth Fontanez MD Dictated Date/time: 09/05/17 07:32 Electronically Signed by: Janeth Fontanez MD 09/05/17 07:36 FINAL REPORT [facility] CHEM PANEL A/G Ratio 1.2 0.7 - 1.6 09/02/2017 [facility] CHEM PANEL Globulin 3.5 g/dL 2.7 - 4.2 09/02/2017 [facility] CHEM PANEL B/C Ratio 16 6 - 25 09/02/2017 [facility] CHEM PANEL Total Protein 7.7 g/dL 6.4 - 8.4 09/02/2017 [facility] CHEM PANEL Albumin Lvl 4.2 g/dL 3.5 - 5.0 09/02/2017 [facility] CHEM PANEL ALT 83 unit/L 0 - 65 09/02/2017 [facility] CHEM PANEL Bili Total 0.5 mg/dL 0.2 - 1.3 09/02/2017 [facility] CHEM PANEL AST 40 unit/L 0 - 37 09/02/2017 [facility] CHEM PANEL Alk Phos 78 unit/L 39 - 136 09/02/2017 [facility] HEMATOLOGY Coag Index 1.0 -3.0-3.0 - 3.0 09/02/2017 [facility] HEMATOLOGY TEG Data See Note (09/02/17 2:40 PM) 09/02/2017 [facility] HEMATOLOGY Ly30 0.0 % 0.0 - 7.5 09/02/2017 [facility] HEMATOLOGY G-value 10.8 K d/sc 4.5 - 11.0 09/02/2017 [facility] HEMATOLOGY K-time 1.7 min 1.0 - 3.0 09/02/2017 [facility] HEMATOLOGY Max Amp 68.3 mm 50.0 - 70.0 09/02/2017 [facility] HEMATOLOGY Angle 66.5 degrees 53.0 - 72.0 09/02/2017 [facility] HEMATOLOGY R-time 6.2 min 5.0 - 10.0 09/02/2017 [facility] HEMATOLOGY TEG Interp Thrombelastograph results are within reference ranges. These indicate adequate hemostasis. Note that TEG does not show effect of NSAIDs or P2Y12 inhibitors.[id number] 09/02/2017 [facility] HEMATOLOGY INR 1.03 0.85 - 1.17 09/02/2017 [facility] HEMATOLOGY PT 13.5 s 12.0 - 14.7 09/02/2017 [facility] HEMATOLOGY PTT 31.9 s 22.9 - 35.8 09/02/2017 [facility] HEMATOLOGY Eosinophils 2.5 % 0.0 - 4.0 09/02/2017 [facility] HEMATOLOGY Basophils # 0.1 K/CMM 0.0 - 0.2 09/02/2017 [facility] HEMATOLOGY Eosinophils # 0.2 K/CMM 0.0 - 0.5 09/02/2017 [facility] Vital Signs Vital Sign Value Date Comments Source Respitory Rate 17 02/13/2018 [facility] Systolic (mm Hg) 123 02/13/2018 [facility] Diastolic (mm Hg) 66 02/13/2018 [facility] Respitory Rate 15 02/13/2018 [facility] Systolic (mm Hg) 126 02/13/2018 [facility] Diastolic (mm Hg) 68 02/13/2018 [facility] Systolic (mm Hg) 124 02/13/2018 [facility] Diastolic (mm Hg) 64 02/13/2018 [facility] Respitory Rate 16 02/13/2018 [facility] BMI Calculated 42.42 02/13/2018 [facility] Weight 134.091 02/13/2018 [facility] Height 177.8 cm 02/13/2018 [facility] Heart Rate 53 02/13/2018 [facility] BMI Calculated 42.42 02/09/2018 [facility] Height 177.8 cm 02/09/2018 [facility] Weight 134.091 02/09/2018 [facility] Height 177.8 cm 10/14/2017 [facility] Weight 137.727 10/14/2017 [facility] BMI Calculated 43.57 10/14/2017 [facility] Heart Rate 83 10/14/2017 [facility] Temperature Oral (F) 97.8 F 10/14/2017 [facility] Systolic (mm Hg) 152 10/14/2017 [facility] Diastolic (mm Hg) 99 10/14/2017 [facility] Weight 130.455 09/16/2017 [facility] BMI Calculated 41.27 09/16/2017 [facility] Height 177.8 cm 09/16/2017 [facility] Systolic (mm Hg) 139 09/16/2017 [facility] Diastolic (mm Hg) 101 09/16/2017 [facility] Temperature Oral (F) 97.6 F 09/16/2017 [facility] Heart Rate 80 09/16/2017 [facility] Heart Rate 59 09/08/2017 [facility] Respitory Rate 16 09/08/2017 [facility] Systolic (mm Hg) 162 09/08/2017 [facility] Diastolic (mm Hg) 95 09/08/2017 [facility] Temperature Oral (F) 98.5 F 09/08/2017 [facility] Systolic (mm Hg) 156 09/08/2017 [facility] Diastolic (mm Hg) 99 09/08/2017 [facility] Respitory Rate 16 09/08/2017 [facility] Temperature Oral (F) 98.2 F 09/08/2017 [facility] Heart Rate 66 09/08/2017 [facility] Systolic (mm Hg) 126 09/08/2017 [facility] Diastolic (mm Hg) 70 09/08/2017 [facility] Heart Rate 86 09/08/2017 [facility] Temperature Oral (F) 98 F 09/08/2017 [facility] Respitory Rate 14 09/08/2017 [facility] Weight 137.818 09/06/2017 [facility] Height 177.8 cm 09/06/2017 [facility] BMI Calculated 43.04 09/06/2017 [facility] Weight 136.052 09/06/2017 [facility] Height 177.8 cm 09/02/2017 [facility] Weight 136.364 09/02/2017 [facility] BMI Calculated 43.14 09/02/2017 [facility] Height 177.8 cm 09/02/2017 [facility] BMI Calculated 43.14 09/02/2017 [facility] BMI Calculated 42.56 07/08/2017 [facility] Weight 134.545 07/08/2017 [facility] Height 177.8 cm 07/08/2017 [facility] Systolic (mm Hg) 147 07/08/2017 [facility] Diastolic (mm Hg) 96 07/08/2017 [facility] Heart Rate 63 07/08/2017 [facility] Temperature Oral (F) 98.0 F 07/08/2017 [facility] Encounters Location Location Details Encounter Type Encounter Number Reason For Visit Attending Provider ADM Date DC Date Status Source Outpatient [id number] ROGER SUMNER 07/08/2017 Active [facility] Neurosurgery TM Outpatient [id number] Roger Sumner 07/08/2017 07/09/2017 [facility] Neurosurgery [facility] Phone Message [id number] 07/27/2017 07/29/2017 [facility] Phone Message [id number] 07/29/2017 07/31/2017 [facility] Phone Message [id number] 08/01/2017 08/03/2017 [facility] Phone Message [id number] 08/19/2017 08/21/2017 [facility] Outpatient [id number] ROGER SUMNER 09/05/2017 Active [facility] Inpatient [id number] Roger Sumner 09/05/2017 09/08/2017 [facility] Outpatient [id number] ROGER SUMNER 09/16/2017 Active [facility] Neurosurgery [facility] Outpatient [id number] Roger Sumner 09/16/2017 09/17/2017 [facility] Neurosurgery TM Phone Message [id number] 10/05/2017 10/07/2017 [facility] Outpatient [facility] [place] [facility] [id number] Roger Sumner 10/13/2017 10/14/2017 [facility] [place] Outpatient [id number] ROGER SUMNER 10/14/2017 Active [facility] Neurosurgery [facility] Outpatient [id number] Suzan Mcmahon 10/14/2017 10/15/2017 [facility] [id number] Suzan Mcmahon 02/13/2018 02/14/2018 [facility] Procedures Procedure Code Date Perfomer Comments Source Appendectomy [id number] [facility] Appendectomy [id number] [facility] [place] Appendectomy [id number] [facility] Acoustic neurotomy [id number] [facility] Cystoscopy [id number] [facility] Lithotripsy [id number] [facility]
--- OUTSIDE RECORDS SUMMARY | 2018-05-09 11:08 | XMS REPORT | Summary of Care ---
Author Author [facility] Neurosurgery [facility] Organization [facility] Neurosurgery [facility] Address Unknown Phone Unavailable Encounter HQ Encntr_alias(FIN) [phone] Date(s): 07/27/17 - 07/28/17 [facility] Neurosurgery [facility] [address] [facility], [address] [place], [place] [address] [phone] Vital Signs No data available for this section Problem List Condition Effective Dates Status Health Status Informant Morbid Active obesity(Confirmed) Allergies, Adverse Reactions, Alerts No data available for this section Medications No data available for this section Results No data available for this section Immunizations No data available for this section Procedures Procedure Date Related Diagnosis Body Site Appendectomy Social History Social History Type Response Smoking Status Former smoker; Exposure to Tobacco Smoke Unable to obtain; Cigarette Smoking Last 365 Days Unable to obtain; Reg Smoking Cessation Counseling No Assessment and Plan No data available for this section
--- OUTSIDE RECORDS SUMMARY | 2018-05-09 11:08 | XMS REPORT | Summary of Care ---
Author Author [facility] Organization [facility] Neurosurgery [facility] Address Unknown Phone Unavailable Encounter HQ Ana(FIN) [phone] Date(s): 07/08/17 - 07/08/17 [facility] Neurosurgery [facility] [address] [facility], [address] [place] [address]- [facility] [phone] Discharge Disposition: Home or Self Care Attending Physician: Dre Quintanilla MD Vital Signs Most recent to 1 oldest [Reference Range]: Height 177.8 cm (07/08/17 11:12 AM) Temperature Oral 98.0 DegF [96.4-99.1 DegF] (07/08/17 11:12 AM) Blood Pressure 147/96 mmHg [90-140/60-90 mmHg] *HI* (07/08/17 11:12 AM) Peripheral Pulse 63 bpm Rate [60-100 bpm] (07/08/17 11:12 AM) Weight 134.545 kg (07/08/17 11:12 AM) Body Mass Index 42.56 m2 (07/08/17 11:12 AM) Problem List Condition Effective Dates Status Health Status Informant Morbid Active obesity(Confirmed) Allergies, Adverse Reactions, Alerts No data available for this section Medications methimazole 5 mg oral tablet 5 mg=1 tab, PO, Q8H, 0 Refill(s) Start Date: 07/08/17 Status: Ordered propranolol 20 mg oral tablet 20 mg=1 tab, PO, BID, 0 Refill(s) Start Date: 07/08/17 Status: Ordered Results No data available for this section [...]
--- OUTSIDE RECORDS SUMMARY | 2018-05-09 11:08 | XMS REPORT | Summary of Care ---
Author Author [facility] Organization [facility] Neurosurgery [facility] Address Unknown Phone Unavailable Encounter HQ Encntr_alias(FIN) [phone] Date(s): 07/29/17 - 07/30/17 [facility] Neurosurgery [facility] [address] [facility], [address] [place], [place] [address] [phone] Vital Signs No [...]
--- OUTSIDE RECORDS SUMMARY | 2018-05-09 11:09 | XMS REPORT | Summary of Care ---
Author Author [facility] [place] [place] Organization [facility] [place] [place] Address Unknown Phone Unavailable Encounter HQ Encntr_alias(FIN) [phone] Date(s): 10/05/17 - 10/06/17 [facility] [place] [place] [address] [facility], [address] [phone] Vital Signs No data available for this section Problem List Condition Effective Dates Status Health Status Informant Vestibular Active schwannoma(Confirmed ) Dizziness(Confirmed) Active Hearing Active loss(Confirmed) Hyperthyroidism(Conf Active irmed) Morbid Resolved obesity(Confirmed) Extreme Resolved obesity(Confirmed) Tinnitus(Confirmed) Active Allergies, Adverse Reactions, Alerts Substance Reaction Severity Status Vicodin Nausea and vomiting Active Medications No data available for this section [...] smoking 10 years ago Assessment and Plan No data available for this section
--- OUTSIDE RECORDS SUMMARY | 2018-05-09 11:09 | XMS REPORT | Summary of Care ---
Author Author [facility] Organization [facility] Neurosurgery [facility] Address Unknown Phone Unavailable Encounter HQ Encntr_alikarolina(FIN) [phone] Date(s): 08/19/17 - 08/20/17 [facility] [address] [facility], [address] [phone] Vital Signs [...]
--- OUTSIDE RECORDS SUMMARY | 2018-05-09 11:09 | XMS REPORT | Summary of Care ---
Author Author [facility] Organization [facility] Address Unknown Phone Unavailable Encounter AARON Perez(FIN) [phone] Date(s): 09/16/17 - 09/16/17 [facility] [address] [facility], [address] [phone] Discharge Disposition: Home or Self Care Attending Physician: Dre Quintanilla MD Vital Signs Most recent to 1 oldest [Reference Range]: Height 177.8 cm (09/16/17 9:15 AM) Temperature Oral 97.6 DegF [96.4-99.1 DegF] (09/16/17 9:15 AM) Blood Pressure 139/101 mmHg [90-140/60-90 mmHg] (09/16/17 9:15 AM) Peripheral Pulse 80 bpm Rate [60-100 bpm] (09/16/17 9:15 AM) Weight 130.455 kg (09/16/17 9:15 AM) Body Mass Index 41.27 m2 (09/16/17 9:15 AM) Problem List Condition Effective Dates Status Health Status Informant Vestibular Active schwannoma(Confirmed ) Dizziness(Confirmed) Active Hearing Active loss(Confirmed) Hyperthyroidism(Conf Active irmed) Morbid Resolved obesity(Confirmed) Extreme Resolved obesity(Confirmed) Tinnitus(Confirmed) Active Allergies, Adverse Reactions, Alerts Substance Reaction Severity Status Vicodin Nausea and vomiting Active Medications No Known Medications Results No data available for this section [...]
--- OUTSIDE RECORDS SUMMARY | 2018-05-09 11:09 | XMS REPORT | Summary of Care ---
Author Author [facility] Organization [facility] Address Unknown Phone Unavailable Encounter HQ Josephinentr_jewels(FIN) [phone] Date(s): 10/14/17 - 10/14/17 [facility] Neurosurgery [facility] [address] [facility], [address] [phone] Discharge Disposition: Home or Self Care Attending Physician: Dre Quintanilla MD Referring Physician: Suzan Mcmahon MD Vital Signs Most recent to 1 oldest [Reference Range]: Height 177.8 cm (10/14/17 9:12 AM) Temperature Oral 97.8 DegF [96.4-99.1 DegF] (10/14/17 9:12 AM) Blood Pressure 152/99 mmHg [90-140/60-90 mmHg] *HI* (10/14/17 9:12 AM) Peripheral Pulse 83 bpm Rate [60-100 bpm] (10/14/17 9:12 AM) Weight 137.727 kg (10/14/17 9:12 AM) Body Mass Index 43.57 m2 (10/14/17 9:12 AM) Problem List Condition Effective Dates Status [...]
--- OUTSIDE RECORDS SUMMARY | 2018-05-09 11:09 | XMS REPORT | Summary of Care ---
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
--- OUTSIDE RECORDS SUMMARY | 2018-05-09 11:09 | XMS REPORT | Summary of Care ---
Author Author [facility] Organization [facility] Address Unknown Phone Unavailable Encounter HQ Ana(FIN) [phone] Date(s): 02/13/18 - 02/13/18 [facility] [address] [place] [address] Discharge Disposition: Home or Self Care Attending Physician: Suzan Mcmahon MD Referring Physician: Suzan Mcmahon MD Vital Signs 1 2 3 Most recent to oldest [Reference Range]: 177.8 cm (02/13/18 8:58 AM) 177.8 cm (02/09/18 2:00 PM) Height 123/66 mmHg (02/13/18 1:09 PM) 126/68 mmHg (02/13/18 1:00 PM) 124/64 mmHg (02/13/18 12:45 PM) Blood Pressure [90-140/60-90 mmHg] 17 BRMIN (02/13/18 1:09 PM) 15 BRMIN (02/13/18 1:00 PM) 16 BRMIN (02/13/18 12:45 PM) Respiratory Rate [14-20 BRMIN] 53 bpm *LOW* (02/13/18 8:58 AM) Peripheral Pulse Rate [60-100 bpm] 134.091 kg (02/13/18 8:58 AM) 134.091 kg (02/09/18 2:00 PM) Weight 42.42 m2 (02/13/18 8:58 AM) 42.42 m2 (02/09/18 2:00 PM) Body Mass Index Problem List Condition Effective Dates Status Health Status Informant Vestibular Active schwannoma(Confirmed ) Dizziness(Confirmed) Active Hearing Active loss(Confirmed)1 Hyperthyroidism(Conf Active irmed) Morbid Resolved obesity(Confirmed) Extreme Resolved obesity(Confirmed) Tinnitus(Confirmed) Active 1right Allergies, Adverse Reactions, Alerts Substance Reaction Severity Status Vicodin Nausea and vomiting Active Medications acetaminophen (ANES) 10 mg Route: IV, Drug form: INJ, Start date: 02/13/18 11:20:00 CDT, Stop date: 8 12:20:00 CDT Start Date: 02/13/18 Stop Date: 02/13/18 Status: Completed ANES esmolol 10 mg, 1 mL, Route: IVP, Drug form: INJ, Q5Min, Dosing Weight 134.091, kg, PRN O ther -See Comment, Start date: 02/13/18 10:51:00 CDT, Duration: 5 doses or times , Stop date: 02/14/18 0:00:00 CDT Notes: (Same as: Brevibloc) Start Date: 02/13/18 Stop Date: 02/14/18 Status: Completed ANES fentaNYL 25 microgram, 0.5 mL, Route: IVP, Drug form: INJ, Q5Min, Dosing Weight 134.091, kg, PRN Pain Score 4-6, Priority: Routine, Start date: 02/13/18 10:51:00 CDT, Du ration: 4 doses or times, Stop date: 02/14/18 0:00:00 CDT Notes: (Same as: Sublimaze) Preservative free. Start Date: 02/13/18 Stop Date: 02/14/18 Status: Completed ANES flumazenil 0.2 mg, 2 mL, Route: IVP, Drug form: INJ, PRN, Dosing Weight 134.091, kg, PRN Be nzodiazepine Reversal, Initial dose, Start date: 02/13/18 10:51:00 CDT, Duration : 30 day, Stop date: 03/15/18 10:50:00 CDT Notes: (Same as: Romazicon) Start Date: 02/13/18 Stop Date: 02/14/18 Status: Discontinued ANES hydrALAZINE 10 mg, 0.5 mL, Route: IVP, Drug form: INJ, Q20Min, Dosing Weight 134.091, kg, MA N Elevated BP, Start date: 02/13/18 10:51:00 CDT, Duration: 2 doses or times, St op date: 02/14/18 0:00:00 CDT Notes: (Same as: Apresoline)Push over 5 minutes Start Date: 02/13/18 Stop Date: 02/14/18 Status: Completed ANES HYDROmorphone 0.5 mg, 0.25 mL, Route: IVP, Drug form: INJ, Q5Min, Dosing Weight 134.091, kg, P RN Pain Score 7-10, Start date: 02/13/18 10:51:00 CDT, Duration: 4 doses or time s, Stop date: 02/14/18 0:00:00 CDT Notes: Same as Dilaudid Start Date: 02/13/18 Stop Date: 02/14/18 Status: Completed ANES labetalol 10 mg, 2 mL, Route: IVP, Drug form: INJ, Q5Min, Dosing Weight 134.091, kg, PRN E levated BP, Start date: 02/13/18 10:51:00 CDT, Duration: 5 doses or times, Stop date: 02/14/18 0:00:00 CDT Start Date: 02/13/18 Stop Date: 02/14/18 Status: Completed ANES naloxone 0.4 mg, 1 mL, Route: IVP, Drug form: INJ, Q2MIN, Dosing Weight 134.091, kg, PRN Narcotic Reversal, Start date: 02/13/18 10:51:00 CDT, Duration: 8 doses or times , Stop date: 02/14/18 0:00:00 CDT Notes: Same as Narcan Start Date: 02/13/18 Stop Date: 02/14/18 Status: Completed ANES ondansetron 4 mg, 2 mL, Route: IVP, Drug form: INJ, ONCE, Dosing Weight 134.091, kg, PRN [place] & Vomiting, Start date: 02/13/18 10:51:00 CDT Notes: (Same as: Tim) MEDICATION WASTE Product Size: 4 mgProduct Was alannah: ___ mg Start Date: 02/13/18 Stop Date: 02/14/18 Status: Discontinued ANES oxyCODONE 5 mg, 1 tab, Route: PO, Drug form: TAB, Q4H, Dosing Weight 134.091, kg, PRN Pain Score 4-6, Start date: 02/13/18 10:51:00 CDT, Duration: 30 day, Stop date: 02/23 09/11 10:50:00 CDT Notes: (Same as: Roxicodone) Start Date: 02/13/18 Stop Date: 02/14/18 Status: Discontinued ceFAZolin 3 gm, 150 mL, Route: IVPB, Drug form: INJ, PRE OP, Start date: 02/12/18 23:00:00 CDT, Duration: 1 day, Stop date: 02/13/18 22:59:00 CDT, ABX Indication: Surgical Prophylaxis Start Date: 02/12/18 Stop Date: 02/14/18 Status: Discontinued ceFAZolin (ANES) Route: IV, Drug form: INJ, ONCE, Stop date: 02/13/18 11:40:00 CDT Start Date: 02/13/18 Stop Date: 02/13/18 Status: Completed ceFAZolin + sterile water 20 mL 2 gm, Route: IV, PRE OP, Start date: 02/12/18 23:00:00 CDT, Duration: 1 day, Sto p date: 02/13/18 22:59:00 CDT, ABX Indication: Surgical Prophylaxis Notes: (Same As: Tiffani Chen) MEDICATION WASTE Product Size: 1000 mgP roduct Wasted: ___ mg Start Date: 02/12/18 Stop Date: 02/12/18 Status: Deleted dexamethasone (ANES) Route: IV, Drug form: INJ, ONCE, Stop date: 02/13/18 11:40:00 CDT Start Date: 02/13/18 Stop Date: 02/13/18 Status: Completed fentaNYL (ANES) Route: IV, Drug form: INJ, ONCE, Stop date: 02/13/18 11:40:00 CDT Start Date: 02/13/18 Stop Date: 02/13/18 Status: Completed Lactated Ringers Injection IV (ANES) 1000 mL Route: IV, Total Volume: 1,000, Start date: 02/13/18 10:47:00 CDT, Stop date: 11:47:00 CDT Start Date: 02/13/18 Stop Date: 02/13/18 Status: Completed lidocaine (ANES) Route: IV, Drug form: INJ, ONCE, Stop date: 02/13/18 11:40:00 CDT Start Date: 02/13/18 Stop Date: 02/13/18 Status: Completed midazolam (ANES) Route: IV, Drug form: SOLN, ONCE, Stop date: 02/13/18 11:30:00 CDT Start Date: 02/13/18 Stop Date: 02/13/18 Status: Completed ondansetron (ANES) Route: IV, Drug form: INJ, ONCE, Stop date: 02/13/18 11:46:00 CDT Start Date: 02/13/18 Stop Date: 02/13/18 Status: Completed propofol (ANES) Route: IV, Drug form: INJ, ONCE, Stop date: 02/13/18 11:40:00 CDT Start Date: 02/13/18 Stop Date: 02/13/18 Status: Completed Results ELECTROLYTES Most recent to 1 oldest [Reference Range]: Sodium Lvl [135-145 143 mEq/L mEq/L] (02/13/18 9:16 AM) Potassium Lvl 3.9 mEq/L [3.5-5.1 mEq/L] (02/13/18 9:16 AM) Chloride Lvl [95-109 109 mEq/L mEq/L] (02/13/18 9:16 AM) CO2 [24-32 mEq/L] 24 mEq/L (02/13/18 9:16 AM) AGAP [10.0-20.0 13.9 mEq/L mEq/L] (02/13/18 9:16 AM) CHEM PANEL Most recent to 1 oldest [Reference Range]: Creatinine Lvl 0.99 mg/dL [0.50-1.40 mg/dL] (02/13/18 9:16 AM) eGFR 95 mL/min/1.73m2 1 *NA* (02/13/18 9:16 AM) BUN [7-22 mg/dL] 16 mg/dL (02/13/18 9:16 AM) Glucose Lvl [70-99 117 mg/dL mg/dL] *HI* (02/13/18 9:16 AM) Calcium Lvl 8.5 mg/dL [8.5-10.5 mg/dL] (02/13/18 9:16 AM) 1Result Comment: The eGFR is calculated using [...] be mul tiplied by the estimated BMI. Immunizations No data available for this section Procedures Procedure Date Related Diagnosis Body Site Status Acoustic neurotomy Completed Appendectomy Completed Cystoscopy Completed Lithotripsy Completed Social History Social History Type Response Alcohol Current, Frequency: 1-2 times per month. Smoking Status Former smoker; Type: Cigarettes; Previous treatment: None; Exposure to Tobacco Smoke None; Cigarette Smoking Last 365 Days No; Reg Smoking Cessation Counseling No1 entered on: 02/13/18 1Quit smoking 10 years ago Assessment and Plan No data available for this section
== END 2018-04-28 17:05 | disposition home or self-care (01) ==
LOC: ER 11:06
DX: R55 Syncope and collapse (principal); R42 Dizziness and giddiness; R53.1 Weakness
CPT/HCPCS: 36415; 70450; 70496; 71046; 80053; 80307; 81001; 82550; 82553; 84484; 85025; 85610; 85730; 93005; 99284; Q9967